=== PATIENT | male | born 1940 | race Caucasian/White ===

== ENCOUNTER → 2023-06-19 12:33 | Outpatient (REF) | payer OTHER, SELFPAY | LOC: RCS 12:33 | PROVIDERS: ATTENDING PHYSICIAN Internal Medicine Cardiovascular Disease; FAMILY PHYSICIAN Family Medicine | DX: Z95.3 Presence of xenogenic heart valve (principal) | CPT/HCPCS: 93306 ==

== ENCOUNTER 2023-06-30 14:50 | Emergency (ER) | payer OTHER, SELFPAY ==
[2023-06-30 15:01] VITALS: BP 173/93
[2023-06-30 16:01] VITALS: BP 186/85
[2023-06-30] MEDS: NSS 1000 IV (16:21)
[2023-06-30] MEDS: COMPAZINE 10 MG IV (16:22)
[2023-06-30 16:28] LABS: % Basophils 0.2 % (0-2); % Immature Granulocytes 0.5 % (0-0.5); % Lymphocytes 6.3 % (20.5-51.1); % Monocytes 4.7 % (1.7-9.3); % Neutrophils 88.3 % (42.2-75.2); Absolute Lymphocytes 0.4 10^3/uL (1.2-3.4); Absolute Monocytes 0.3 10^3/uL (0.1-0.6); Hematocrit 42.6 % (39.0-52.0); Hemoglobin 15.1 g/dL (13.0-18.0); Mean Corp Hgb Conc. 35.4 g/dL (33.0-37.0); Mean Corpuscular Hgb 31.3 pg (27.0-31.0); Mean Corpuscular Volume 88.2 fL (80.0-94.0); Mean Platelet Volume 9.5 fL (7.4-10.4); Nucleated Red Blood Cells % 0 % (-); Platelet Count 142 10^3/uL (130-400); Red Blood Cell Count 4.83 10^6/uL (4.70-6.10); Red Cell Dist. Width 12.2 % (11.5-14.5); White Blood Cell Count 5.7 10^3/uL (4.8-10.8)
[2023-06-30 16:42] LABS: ALT (SGPT) 40 U/L (0-50); AST (SGOT) 46 U/L (17-59); Albumin 4.7 g/dl (3.5-5.0); Alkaline Phosphatase 65 U/L (38-126); Blood Urea Nitrogen 19 mg/dl (9-20); Calcium 9.7 mg/dl (8.4-10.2); Carbon Dioxide 30 mmol/L (22-30); Chloride 99 mmol/L (98-107); Glucose 155 mg/dl (70-99); Potassium 4.6 mmol/L (3.5-5.1); Sodium 135 mmol/L (135-145); Total Bilirubin 1.2 mg/dl (0.2-1.3); Total Protein 7.7 g/dl (6.3-8.2); eGFR > 60.00
[2023-06-30 16:49] LABS: Troponin I < 0.012 ng/ml
[2023-06-30 17:00] VITALS: BP 153/78
[2023-06-30 17:21] LABS: Urine Albumin Trace (Neg - Trace); Urine Bilirubin Negative (Negative); Urine Character Clear (Clear); Urine Color Yellow; Urine Glucose Negative (Negative); Urine Ketone 2+ (Negative); Urine Leukocyte Negative (Negative); Urine Nitrite Negative (Negative); Urine Occult Blood 2+ (Negative); Urine Urobilinogen Negative (Neg - 1+)
[2023-06-30 17:33] LABS: Urine Bacteria Few (Negative); Urine White Cell 0-2 /HPF (0-5)
[2023-06-30 18:00] VITALS: BP 157/87
[2023-06-30] MEDS: LOPRESSOR 12.5 MG PO (18:48)
[2023-06-30 19:00] VITALS: BP 157/78
--- NOTE | 2023-06-30 19:34 | ED.GENMED ---
History of Present Illness
General
Chief Complaint: Dizziness
Source: patient and spouse
Exam Limitations: none
Time Seen by Provider: 06/30/23 15:59
Nursing documentation reviewed up to this point in time: agreed with
Travel History
Have you had any contact with someone who has COVID-19?: No
Do you have any symptoms of coronavirus? Fever > 100 degrees, chills, cough, shortness of breath, sore throat, loss of taste or smell, muscle aches, or headache?: No
History of Present Illness
History of Present Illness:
Patient to ED wt report of dizziness, nausea, dry heaves since yesterday. No fever/chills. reports he is not eating or drinking. Brought to ED for eval.
Past History
Past History
ED Past Medical History: HTN, Hypercholesterolemia, Valvular disease (Aortic stenosis) and Other (TIA, diverticulitis, pulmonary fibrosis, )
ED Past Surgical History: Appendectomy, Cardiac (bioprosthetic aortic and mitral valve replacement 2016, CABG, ), Tonsilectomy and Other (left carotid endarterectomy, herniorrhaphy, Left hernia repair)
Social History
Tobacco: Non-smoker
Alcohol: None
Personal:
Living: with family
Employment: Retired
Family History
Family History: Other
Review of Systems
Review of Systems
Allergies reviewed?: Yes
All Other Systems: ROS reviewed and negative except as documented in HPI and ROS
Constitutional: Reports fatigue
EENT: Reports no symptoms
Respiratory: Reports no symptoms
Cardiac: Reports no symptoms
ABD/GI: Reports nausea and other (poor appetite)
: Reports no symptoms
Musculoskeletal: Reports no symptoms
Skin: Reports no symptoms
Neurological: Reports weakness
Psychiatric: Reports no symptoms
Phy Exam
General Physical Exam
General Presentation: well appearing and no apparent distress
General age: appears stated age
General Skin: warm and dry
General Habitus: normal
General Mental: alert
Cardiovascular Exam
Cardiovascular Exam: regular rate/rhythm and no edema
Pulmonary Exam
Pulmonary Exam: lungs clear and no respiratory distress
Gastrointestinal Exam
Gastrointestinal Exam: normal bowel sounds, non tender, soft, no organomegaly, non distended and no cva tenderness
Neurological Exam
Neurological Exam: alert, oriented x3, CN II-XII intact, no motor deficits, no sensory deficits and speech normal
Musculoskeletal Exam
Musculoskeletal Exam: full ROM and neuro vasc intact
Skin Exam
Skin Exam: normal color, warm/dry and no rash
Psychiatric Exam
Psychiatric Exam: normal mood/affect
Course
Orders/Labs/Results
Orders:
Orders
06/30/23 15:05
EKG [Electrocardiogram (*1)] Urgent
Reason for Study: Vertigo / Dizzy
EKG- Treatment ONCE
06/30/23 16:08
Prochlorperazine [Compazine] 10 mg IV NOW STA
06/30/23 16:09
0.9% Sodium Chloride 1000 ml [Nss] 1,000 ml IV BOLUS
06/30/23 16:16
Complete Blood Count/With Diff Urgent
Comprehensive Metabolic Panel Urgent
Troponin I Urgent
06/30/23 17:08
CT Head W/o Iv Contrast Urgent
Comment:
Reason For Exam: dizzy
06/30/23 17:14
Urinalysis Reflex To Culture Urgent
Date Specimen was Collected: 06/30/23
Time Specimen was Collected: 17:11
Urine Microscopic Reflex Cult Urgent
06/30/23 18:45
Metoprolol [Lopressor] 12.5 mg PO NOW STA
Abnormal Lab Results
06/30/23 06/30/23
16:16 17:14
MCH 31.3 H pg
(27.0-31.0)
Absolute Lymphs (auto) 0.4 L 10^3/uL
(1.2-3.4)
Neutrophils % 88.3 H %
(42.2-75.2)
Lymphocytes % 6.3 L %
(20.5-51.1)
Glucose 155 H mg/dl
(70-99)
Urine Ketones 2+ A
(Negative)
Ur Occult Blood Reflex 2+ A
(Negative)
Urine RBC 11-15 A /HPF
(0-2)
Urine Bacteria (Reflex) Few A
(Negative)
06/30/23 16:16
06/30/23 16:16
Vital Signs
Initial and Last Documented VS:
Initial Vital Signs
Temp Pulse Resp BP Pulse Ox
97.7 F 78 16 173/93 98
06/30/23 15:01 06/30/23 15:01 06/30/23 15:01 06/30/23 15:01 06/30/23 15:01
Last Documented Vital Signs
Temp Pulse Resp BP Pulse Ox
97.7 F 77 16 157/78 97
06/30/23 15:01 06/30/23 19:00 06/30/23 19:00 06/30/23 19:00 06/30/23 18:45
*Radiology
Radiology exam reviewed: radiology read reviewed
*Pulse Oximetry
Patient hypoxic: no
*EKG
Interpretation: normal
Rate: normal
Rhythm: sinus
*Critical Care Note
Total Time (30-74mins, 75-104mins- exclusive of procedures): Not Applicable
Update Note
Update Note:
Improved with IVF. Ambulating to bathroom with spouse without difficulty. Labs, EKG, CT reviewed. No concerning findings. WIll discharge home, close follow upw tih PCP. Given instrutions on s/s to return to ED and they are agreeable to plan
ED Attending Note
-
Portions of this chart may have been created with voice recognition software.� Occasional wrong word or��sound alike� substitutions may have occurred due to the inherent limitations of voice recognition software.
Discharge Plan
Departure
Patient Disposition: Home (Routine Discharge)
Date of Disposition: 06/30/23
Time of Disposition: 19:02
Patient with high blood pressure during this ER visit?: No
Condition: Good
Covid-19: Not Applicable
Discharge Problem:
Weakness
Instructions: Weakness ED, Dizziness
Prescriptions:
No Action
atorvastatin 40 MG tablet
40 mg PO QPM
multivitamin with folic acid [Tab-A-Lisa] 1 TABLET tablet
1 tab PO DAILY Qty: 0 0RF
metoprolol tartrate 25 MG tablet
12.5 mg PO BID Qty: 60 3RF
mesalamine [Canasa] 500 MG suppository
500 mg MI HS
aspirin 81 MG tablet,delayed release (DR/EC)
81 mg PO DAILY
mesalamine [Lialda] 1.2 GM tablet,delayed release (DR/EC)
1.2 g PO DAILY
tamsulosin 0.4 MG capsule
0.4 mg PO DAILY Qty: 15 0RF
Referrals:
Roxana Weber DO [Family Provider] - Follow up in 2-3 days
Activity Restrictions/Additional Instructions:
Return to the emergency department for any changes in/worsening of your symptoms.
Interventions
Interventions:
*Risk Screen - Suicide Last Done: 06/30/23 15:01
*General Assessment Last Done: 06/30/23 15:01
*Neglect/Abuse Screening Last Done: 06/30/23 15:01
ED- Fall Risk Assessment Last Done: 06/30/23 19:05
*ED COVID-19 Vaccine History Last Done: 06/30/23 15:55
*Nursing Disposition Last Done: 06/30/23 19:05
ED- Neurological Assessment Last Done: 06/30/23 16:05
ED- Cardiac Assessment Last Done: 06/30/23 19:05
ED Swallowing Screen Last Done: 06/30/23 16:23
Discharge Date and Time
Print Language: [place]
== END 2023-06-30 19:56 | disposition home or self-care (01) ==
LOC: EMR 14:50
PROVIDERS: Nurse Practitioner; EMERGENCY PHYSICIAN Emergency Medicine; FAMILY PHYSICIAN Family Medicine
DX: R53.1 Weakness (principal); I10 Essential (primary) hypertension
CPT/HCPCS: 99285; 96374; 96361; 70450; 80053; 81003; 81015; 84484; 85025; 93005

== ENCOUNTER 2023-09-17 23:23 | Inpatient (IN) | payer OTHER, SELFPAY ==
[2023-09-17 18:16] VITALS: BP 129/77
[2023-09-17 18:35] LABS: Hematocrit 40.8 % (39.0-52.0); Hemoglobin 14.3 g/dL (13.0-18.0); Mean Corpuscular Hgb 31.5 pg (27.0-31.0); Mean Corpuscular Volume 89.9 fL (80.0-94.0); Mean Platelet Volume 9.5 fL (7.4-10.4); Platelet Count 162 10^3/uL (130-400); Red Blood Cell Count 4.54 10^6/uL (4.70-6.10); Red Cell Dist. Width 12.2 % (11.5-14.5); White Blood Cell Count 11.9 10^3/uL (4.8-10.8)
[2023-09-17 18:56] LABS: % Basophils 0.2 % (0-2); % Immature Granulocytes 0.4 % (0-0.5); % Lymphocytes 11.2 % (20.5-51.1); % Monocytes 20.1 % (1.7-9.3); % Neutrophils 68.1 % (42.2-75.2); Absolute Immature Granulocytes 0.1 10^3/uL (0-0.05); Absolute Lymphocytes 1.3 10^3/uL (1.2-3.4); Absolute Monocytes 2.4 10^3/uL (0.1-0.6); Absolute Neutrophils 8.1 10^3/uL (1.4-6.5); Nucleated Red Blood Cells % 0 % (-)
[2023-09-17 19:07] LABS: ALT (SGPT) 48 U/L (0-50); AST (SGOT) 47 U/L (17-59); Albumin 4.6 g/dl (3.5-5.0); Alkaline Phosphatase 75 U/L (38-126); Blood Urea Nitrogen 19 mg/dl (9-20); Calcium 9.7 mg/dl (8.4-10.2); Carbon Dioxide 27 mmol/L (22-30); Chloride 98 mmol/L (98-107); Glucose 129 mg/dl (70-99); Potassium 4.1 mmol/L (3.5-5.1); Sodium 134 mmol/L (135-145); Total Bilirubin 1.6 mg/dl (0.2-1.3); Total Protein 7.5 g/dl (6.3-8.2); eGFR > 60.00
[2023-09-17 19:24] VITALS: BP 174/81
[2023-09-17 20:00] VITALS: BP 126/69
[2023-09-17 20:10] LABS: Urine Albumin Trace (Neg - Trace); Urine Bilirubin Negative (Negative); Urine Character Clear (Clear); Urine Color Yellow; Urine Glucose Negative (Negative); Urine Ketone Negative (Negative); Urine Leukocyte Negative (Negative); Urine Nitrite Negative (Negative); Urine Occult Blood 3+ (Negative); Urine Urobilinogen Negative (Neg - 1+)
[2023-09-17 20:23] LABS: Urine Bacteria Few (Negative); Urine White Cell 0-2 /HPF (0-5)
--- NOTE | 2023-09-17 20:52 | ED.GENMED ---
History of Present Illness
<Kelly Tee NP - Last Filed: 09/17/23 21:58>
General
Chief Complaint: Abdominal Pain
Source: spouse
Exam Limitations: none
Time Seen by Provider: 09/17/23 19:17
Nursing documentation reviewed up to this point in time: agreed with
History of Present Illness
History of Present Illness:
Patient to ED with weakness. states he woke over night with confusion. This AM he appeared weak. Weakness has worsened throughout the day. Denies fever/chills. Appetite is poor. Not eating or drinking. Brought to ED by for eval.
Past History
<Kelly Tee NP - Last Filed: 09/17/23 21:58>
Past History
ED Past Medical History: HTN, Hypercholesterolemia, Valvular disease (Aortic stenosis) and Other (TIA, diverticulitis, pulmonary fibrosis, )
ED Past Surgical History: Appendectomy, Cardiac (bioprosthetic aortic and mitral valve replacement 2016, CABG, ), Tonsilectomy and Other (left carotid endarterectomy, herniorrhaphy, Left hernia repair)
Social History
Tobacco: Non-smoker
Alcohol: None
Personal:
Living: with family
Employment: Retired
Family History
Family History: Other
Review of Systems
<Kelly Tee ASTROCHEMIST - Last Filed: 09/17/23 21:58>
Review of Systems
All Other Systems: ROS reviewed and negative except as documented in HPI and ROS
Constitutional: Reports no symptoms
EENT: Reports no symptoms
Respiratory: Reports no symptoms
Cardiac: Reports no symptoms
ABD/GI: Reports anorexia
: Reports no symptoms
Musculoskeletal: Reports joint pain (Pain to right shoulder x 1-2 weeks)
Skin: Reports no symptoms
Neurological: Reports weakness
Psychiatric: Reports no symptoms
Phy Exam
<Kelly Tee NP - Last Filed: 09/17/23 21:58>
General Physical Exam
General Presentation: no apparent distress
General age: appears stated age
General Skin: warm
General Habitus: elderly and frail
General Mental: alert
Cardiovascular Exam
Cardiovascular Exam: regular rate/rhythm and no edema
Pulmonary Exam
Pulmonary Exam: lungs clear and no respiratory distress
Gastrointestinal Exam
Gastrointestinal Exam: normal bowel sounds, non tender and soft
Neurological Exam
Neurological Exam: alert, CN II-XII intact, no motor deficits, no sensory deficits and speech normal
NIH Stroke Score
Level of Consciousness: 0 - Alert
LOC questions: 0-Answers both correctly
LOC Commands: 0-Performs both correctly
Best Gaze: 0-Normal
Visual Hammer: 0=Normal, no visual loss
Facial palsy: 0=Normal, symmetrical
Motor - Right Arm: 0=No drift 10 seconds (Limited ROM due to right shoulder pain)
Motor - Left Arm: 0=No drift 10 seconds
Motor - Right Le-No drift 5 seconds
Motor - Left Le-No drift 5 seconds
Limb Ataxia: 0-Absent
Sensation: 0-Normal
Best Language: 0-No aphasia
Dysarthria: 0-Normal
Extinction and Inattention: 0-No abnormality
Total Score:: 0
Musculoskeletal Exam
Musculoskeletal Exam: neuro vasc intact and other (Right shoulder pain. Limited ROM due to pain. No history of trauma. )
Skin Exam
Skin Exam: normal color, warm/dry and no rash
Psychiatric Exam
Psychiatric Exam: normal mood/affect
<JODI Mondragon - Last Filed: 09/18/23 00:14>
NIH Stroke Score
Total Score:: 0
Course
<Kelly Tee NP - Last Filed: 09/17/23 21:58>
Orders/Labs/Results
Orders:
Orders
09/17/23 18:23
CMP [Comprehensive Metabolic Panel] Urgent
Complete Blood Count/With Diff Urgent
09/17/23 19:28
CT Head W/o Iv Contrast Urgent
Comment:
Reason For Exam: weakness
Shoulder, Right 2 Views [CR Shoulder - Right Min 2 View] Urgent
Comment:
Reason For Exam: pain
09/17/23 19:56
Urinalysis Reflex To Culture Urgent
Date Specimen was Collected: 09/17/23
Time Specimen was Collected: 19:54
Urine Microscopic Reflex Cult Urgent
09/17/23 20:54
0.9% Sodium Chloride 1000 ml [Nss] 1,000 ml IV BOLUS
09/17/23 22:47
CR Chest - 2 Views Urgent
Comment:
Reason For Exam: sob
09/17/23 22:50
Admit/Transfer Patient As Directed
Co-Sign Provider:
Level of Care: Inpatient admission
Assign to:: Medical/Surgical
Physician / Group: lexie
Diagnosis: metabolic encephalopathy
Reason for Hospitalization: metabolic encephalopathy
Expected length of stay greater than two midnights?: Yes
ELOS- Estimated Length of Stay in days: 3
I certify the patient meets the requirements for IP care: Yes
PRN Pain Medication Management As Directed
May give lesser potent ordered pain med per pt: Yes
preference::
Protocol:: Medication orders for pain may be administered in a
manner that supports deferring to patient preference
when the pt is:
- Requesting an ordered lesser potent pain medication.
Least to most potent pain medications are defined
as: acetaminophen < NSAID < tramadol < opioids
(morphine, oxycodone, hydromorphone).
- Requesting a lesser dose of the same medication IF
ORDERED.
- Requesting a less intrusive route of administration
if both routes are prescribed by the provider (PO <
IV).
09/17/23 22:51
Code Status As Directed
Resuscitation Status: Full Code
Abnormal Lab Results
09/17/23 09/17/23
18:23 19:56
WBC 11.9 H 10^3/uL
(4.8-10.8)
RBC 4.54 L 10^6/uL
(4.70-6.10)
MCH 31.5 H pg
(27.0-31.0)
Abs Immat Gran (auto) 0.1 H 10^3/uL
(0-0.05)
Absolute Neuts (auto) 8.1 H 10^3/uL
(1.4-6.5)
Absolute Monos (auto) 2.4 H 10^3/uL
(0.1-0.6)
Lymphocytes % 11.2 L %
(20.5-51.1)
Monocytes % 20.1 H %
(1.7-9.3)
Sodium 134 L mmol/L
(135-145)
Glucose 129 H mg/dl
(70-99)
Total Bilirubin 1.6 H mg/dl
(0.2-1.3)
Ur Occult Blood Reflex 3+ A
(Negative)
Urine RBC 3-6 A /HPF
(0-2)
Urine Bacteria (Reflex) Few A
(Negative)
09/17/23 18:23
09/17/23 18:23
Vital Signs
Initial and Last Documented VS:
Initial Vital Signs
Temp Pulse Resp BP Pulse Ox
99.2 F 90 18 129/77 96
09/17/23 18:16 09/17/23 18:16 09/17/23 18:16 09/17/23 18:16 09/17/23 18:16
Last Documented Vital Signs
Temp Pulse Resp BP Pulse Ox
99.4 F 77 17 160/63 97
09/17/23 20:05 09/18/23 00:00 09/18/23 00:00 09/18/23 00:00 09/17/23 22:00
<Lyssa Farooq, JODI - Last Filed: 09/18/23 00:14>
Orders/Labs/Results
Orders:
Orders
09/17/23 18:23
CMP [Comprehensive Metabolic Panel] Urgent
Complete Blood Count/With Diff Urgent
09/17/23 19:28
CT Head W/o Iv Contrast Urgent
Comment:
Reason For Exam: weakness
Shoulder, Right 2 Views [CR Shoulder - Right Min 2 View] Urgent
Comment:
Reason For Exam: pain
09/17/23 19:56
Urinalysis Reflex To Culture Urgent
Date Specimen was Collected: 09/17/23
Time Specimen was Collected: 19:54
Urine Microscopic Reflex Cult Urgent
09/17/23 20:54
0.9% Sodium Chloride 1000 ml [Nss] 1,000 ml IV BOLUS
09/17/23 22:47
CR Chest - 2 Views Urgent
Comment:
Reason For Exam: sob
09/17/23 22:50
Admit/Transfer Patient As Directed
Co-Sign Provider:
Level of Care: Inpatient admission
Assign to:: Medical/Surgical
Physician / Group: lexie
Diagnosis: metabolic encephalopathy
Reason for Hospitalization: metabolic encephalopathy
Expected length of stay greater than two midnights?: Yes
ELOS- Estimated Length of Stay in days: 3
I certify the patient meets the requirements for IP care: Yes
PRN Pain Medication Management As Directed
May give lesser potent ordered pain med per pt: Yes
preference::
Protocol:: Medication orders for pain may be administered in a
manner that supports deferring to patient preference
when the pt is:
- Requesting an ordered lesser potent pain medication.
Least to most potent pain medications are defined
as: acetaminophen < NSAID < tramadol < opioids
(morphine, oxycodone, hydromorphone).
- Requesting a lesser dose of the same medication IF
ORDERED.
- Requesting a less intrusive route of administration
if both routes are prescribed by the provider (PO <
IV).
09/17/23 22:51
Code Status As Directed
Resuscitation Status: Full Code
Abnormal Lab Results
09/17/23 09/17/23
18:23 19:56
WBC 11.9 H 10^3/uL
(4.8-10.8)
RBC 4.54 L 10^6/uL
(4.70-6.10)
MCH 31.5 H pg
(27.0-31.0)
Abs Immat Gran (auto) 0.1 H 10^3/uL
(0-0.05)
Absolute Neuts (auto) 8.1 H 10^3/uL
(1.4-6.5)
Absolute Monos (auto) 2.4 H 10^3/uL
(0.1-0.6)
Lymphocytes % 11.2 L %
(20.5-51.1)
Monocytes % 20.1 H %
(1.7-9.3)
Sodium 134 L mmol/L
(135-145)
Glucose 129 H mg/dl
(70-99)
Total Bilirubin 1.6 H mg/dl
(0.2-1.3)
Ur Occult Blood Reflex 3+ A
(Negative)
Urine RBC 3-6 A /HPF
(0-2)
Urine Bacteria (Reflex) Few A
(Negative)
09/17/23 18:23
09/17/23 18:23
Vital Signs
Initial and Last Documented VS:
Initial Vital Signs
Temp Pulse Resp BP Pulse Ox
99.2 F 90 18 129/77 96
09/17/23 18:16 09/17/23 18:16 09/17/23 18:16 09/17/23 18:16 09/17/23 18:16
Last Documented Vital Signs
Temp Pulse Resp BP Pulse Ox
99.4 F 77 17 160/63 97
09/17/23 20:05 09/18/23 00:00 09/18/23 00:00 09/18/23 00:00 09/17/23 22:00
<JODI Mondragon - Last Filed: 09/18/23 00:14>
*Radiology
Radiology exam reviewed: radiology read reviewed (CT head night hawk-NO acute intracranial findings. Senescent changes. Vascular calcifications. )
*Critical Care Note
Total Time (30-74mins, 75-104mins- exclusive of procedures): Not Applicable
<Kelly Tee NP - Last Filed: 09/17/23 21:58>
Update Note
Update Note:
Patient to ED for eval of weakness. According to he woke overnight with confusion. States he was awake from 3-6AM with confusion. states confusion passed by he became weak and fatigued. Is able to ambulate but requires assistance of
family. Normally he is independent. Labs reviewed. CT of head is pending. Will admit for weakness.
ED Attending Note
<Kelly Tee NP - Last Filed: 09/17/23 21:58>
-
Portions of this chart may have been created with voice recognition software.� Occasional wrong word or��sound alike� substitutions may have occurred due to the inherent limitations of voice recognition software.
Discharge Plan
Departure
Patient Disposition: Admit
Date of Disposition: 09/17/23
Time of Disposition: 21:55
Presentation/result/management discussed w/ accepting MD/DO: Hospitalist
Patient with high blood pressure during this ER visit?: No
Condition: Fair
Covid-19: Not Applicable
Discharge Problem:
Weakness
Interventions
Interventions:
*Risk Screen - Suicide Last Done: 09/17/23 19:55
*General Assessment Last Done: 09/17/23 18:16
*Neglect/Abuse Screening Last Done: 09/17/23 19:55
ED- Fall Risk Assessment Last Done: 09/17/23 19:29
*ED COVID-19 Vaccine History Last Done: 09/17/23 18:16
NV-Yrwtjg-Cwnaaaujpf Assessment Last Done: 09/17/23 19:29
[2023-09-17 21:00] VITALS: BP 144/73
[2023-09-17] MEDS: NSS 1000 IV (21:02)
--- NOTE | 2023-09-17 22:23 | PHANOTE ---
med rec derek(09/17/23)-patient did not know his medications, family left before I could interview them. List compiled by nurse's interview with family, as well as pharmacy and [facility] records.
--- NOTE | 2023-09-17 22:28 | HPS.HSE ---
Addendum entered and electronically signed by Joe Knox DO 09/18/23 00:41:
Patient seen and examined independently. Agree with findings and plan as set forth by JODI Guzman.
Patient is an 83y M with PMH significant for hypertension, A-Flutter and carotid stenosis who presents to ED for evaluation of confusion and weakness. History obtained from ED staff ad family could not be reached for comment after multiple
attempts. informed ED that patient seemed confused and weak last PM. Woke today with similar / persistent symptoms. Slept for much of the day today. Disoriented. Seemed unsteady on his feet without specific / focal weakness. informed
ED staff that patient is independent with ADLs at baseline and has no confusion / dementia / etc.
No recent reported or noted symptoms of cough, N/V/D, etc.
Ass:
Acute TME
Generalized Weakness / Gait Dysfunction secondary to the above
Leukocytosis
Benign Hypertension
Aortic Stenosis
Paroxysmal A-Flutter
Ulcerative Colitis
Left Carotid Stenosis
Plan:
Observe overnight for further evaluation.
No clear etiology appreciated thus far for confusion / weakness.
CT head unremarkable. CXR unremarkable. UA unremarkable.
Check COVID status.
Monitor for any new / focal weakness or symptoms.
Monitor for any symptoms suggestive of infectious process.
PT / OT evaluations in the AM.
Neurology evaluation.
Check MRI in AM for further evaluation.
Continue usual outpatient medications.
Improved history from would likely be helpful - suspect some degree of baseline dementia is present.
Original Note:
Family Physician
-
Family Physician: Roxana Weber
Chief Complaint
-
generalized weakness
confusion
History of Present Illness
83 year old with PMH for HTN, HLD, Aortic stenosis, TIA, diverticulitis presented to us with change in MS since last night. as per ER note patient woke up confused and noted very weak, sleeping more than usual today. upon my assessment, he was
very confused. he was standing next to sink with IV pulled out. he was incontinence of urine. patient denied any acute pain, chest pain, sob. patient is poor historian, not able to provide history . attempted to reach from patient room. as per
[employer], he is not usually confused and pretty good with ambulation and activities of daily living.
noted elevated wbc. UA negative. received normal saline. CT head and shoulder x ray pending.
admitting for further management for generalized weakness.
Medical History
Past Medical History
Past Medical History: Reports Other
Additional Past Medical History:
ulcerative colitis
paroxysmal atrial flutter
HTn
HLD
pulmonary fibrosis
left carotid stenosis
Past Surgical History: Reports Other
Additional Past Surgical History:
aortic valve replacement
Social History
Tobacco: Non-smoker
Alcohol: None
Drug: None
Personal:
Living: With Family
Family History
Family History: Not pertinent
Allergies / Home Medications
Allergies reflects when Allergies were last updated in [employer].
Home Medications with original date entered in [employer]
Allergy/Medication List:
Allergies
Allergy/AdvReac Type Severity Reaction Status Date / Time
No Known Allergies Allergy Verified 09/17/23 18:19
Home Medications
atorvastatin 40 mg tablet 40 mg PO QPM 07/01/15
metoprolol tartrate 25 mg tablet 12.5 mg (1/2 x 25 mg) PO BID #60 tabs 07/11/15
multivitamin with folic acid 400 mcg tablet (Tab-A-Lisa) 1 tab PO DAILY ##0 07/11/15
mesalamine 1.2 gram tablet,delayed release (Lialda) 2.4 g PO DAILY 04/12/17
amlodipine 5 mg tablet 5 mg PO DAILY 09/17/23
ezetimibe 10 mg tablet 10 mg PO DAILY 09/17/23
Review of Systems
-
Constitutional: Reports No Symptoms
EENT: Reports No Symptoms
Respiratory: Reports No Symptoms
Cardiac: Reports No Symptoms
Abdomen/GI: Reports No Symptoms
: Reports No Symptoms
Musculoskeletal: Reports No Symptoms
Skin: Reports No Symptoms
Neurological: Reports No Symptoms
Endocrine: Reports No Symptoms
Hematologic/Lymphatic: Reports No Symptoms
Psych: Reports No Symptoms
Physical Exam
Vital Signs
Vital Signs
Temp Pulse Resp BP Pulse Ox
99.4 F 88 18 144/73 97
09/17/23 20:05 09/17/23 22:15 09/17/23 22:15 09/17/23 21:00 09/17/23 22:00
Physical Exam
General: Well Developed, Well Nourished and No Apparent Distress
HEENT: NormoCephalic, Moist mucous membranes and Atraumatic
Respiratory: Clear
Cardiac: S1/S2 and Regular Rhythm; No Murmur or Rub
GI: Soft, Non Tender, Non Distended and Normal Bowel Sounds; No Organomegaly
Rectal: Deferred by Provider
Musculoskeletal: No Clubbing, No Cyanosis and No Edema
Skin: No Rash
Neuro: AO x 3 and Nonfocal/grossly intact
Psych: Calm
Laboratory Results
-
09/17/23 18:23
09/17/23 18:23
Laboratory Results
Total Bilirubin 1.6 mg/dl (0.2-1.3) H 09/17/23 18:23
AST 47 U/L (17-59) 09/17/23 18:23
ALT 48 U/L (0-50) 09/17/23 18:23
Alkaline Phosphatase 75 U/L (38-126) 09/17/23 18:23
Data Reviewed
-
Diagnostic Radiology: Report Reviewed by me
CT Scan: Report Reviewed by me
Lab Data: Labs Reviewed by me
Impression/Plan
-
#generalized weakness/metabolic encephalopathy unclear cause
-PT/OT consult
-head CT pending
#leukocytosis unclear likely stress reactive
-wbc 11.9
-patient is afebrile
-UA negative
-will obtain chest x ray
#essential HTN
-BP stble
-Norvasc,metoprolol continued with hold parameter
#HLD
-statin continued
-Zetia continued
#hxt of ulcerative colitis
-mesalamine continued
#DVT Prophylaxis
-Lovenox
#CODE status
-full code
[2023-09-18] VITALS (8 sets, daily range): BP systolic 115–168; BP diastolic 57–96; O2SAT 98; BMI 22.5
[2023-09-18 01:20] LABS: COVID-19 Antigen Negative (Negative)
--- NOTE | 2023-09-18 01:53 | PTCARENOTE ---
Rec'd pt from ER. Pulled over in to the bed. Pt is confused and unable to answer admission questions. No family present at this time. He does wince when repositioned. He can not tell RN where his pain is. He denies pain when asked. Bed alarm placed
under patient. call fay in reach.
[2023-09-18 07:44] LABS: Hematocrit 38.3 % (39.0-52.0); Hemoglobin 13.6 g/dL (13.0-18.0); Mean Corp Hgb Conc. 35.5 g/dL (33.0-37.0); Mean Corpuscular Volume 87.2 fL (80.0-94.0); Platelet Count 157 10^3/uL (130-400); Red Blood Cell Count 4.39 10^6/uL (4.70-6.10); Red Cell Dist. Width 12.3 % (11.5-14.5); White Blood Cell Count 7.7 10^3/uL (4.8-10.8)
[2023-09-18 08:20] LABS: Blood Urea Nitrogen 16 mg/dl (9-20); Calcium 9.4 mg/dl (8.4-10.2); Carbon Dioxide 29 mmol/L (22-30); Chloride 103 mmol/L (98-107); Estimated Creatinine Clearance 54 ml/min; Glucose 100 mg/dl (70-99); Potassium 3.9 mmol/L (3.5-5.1); Sodium 138 mmol/L (135-145); eGFR > 60.00
[2023-09-18] MEDS: LOPRESSOR 12.5 MG PO ×2 (08:22→19:10)
[2023-09-18] MEDS: ASACOL, DELZICOL DR 2400 MG PO (08:22)
[2023-09-18] MEDS: ZETIA 10 MG PO (08:22)
[2023-09-18] MEDS: NORVASC 5 MG PO ×2 (08:22→19:08)
--- NOTE | 2023-09-18 11:00 | W.PN.HOSP.TC ---
Addendum entered and electronically signed by Malika Dent MD 09/18/23 16:08:
Spoke to patient's . Updated regarding testing results and also MRI. Discussed that this could be worsening of his dementia no evidence of infection. She realizes that his dementia is slowly getting worse. She would rather take him home
tomorrow she feels that he is much better today talking and walking much better.
Original Note:
Today's Communication/Plan
-
Await neurology evaluation
Looks like worsening of dementia
PT OT evaluation
No source of infection or stroke evident at this point on the workup.
Assessment / Plan
Assessment / Plan
82-year-old man presented to the hospital with abdominal pain and poor appetite. also noted that patient was weak and confused and sleeping more than usual. Patient is not confused at baseline with pretty good with ADLs and ambulation .
MRI of the brain-no acute infarct. Moderate to severe bilateral temporal lobe volume loss and moderate volume loss in the frontal and parietal lobes consistent with severe neurodegenerative disease. Mild white matter leukoaraiosis in the frontal
and parietal lobes. Small number of chronic intraparenchymal microhemorrhages in the frontal lobes, insular cortex, right cerebellar hemisphere-likely amyloid angiopathy. Severe multilevel discogenic degenerative changes in the cervical spine with
disc osteophyte complexes.
Patient appears to be confused. He knows his name. He does not know where he is. He thinks he is in a 'situation' and wants to get back to [place].
Neuro exam-no facial droop, no sensory or motor loss noted. Reflexes equal throughout
Cardiovascular system S1-S2 appreciated
Chest clear to auscultation
Abdomen soft and nontender
No pedal edema
# Generalized weakness/encephalopathy of unclear cause
Rule out infectious versus noninfectious reasons
MRI of the brain with evidence of volume loss consistent with dementia
Outpatient review of notes indicates that patient has had memory issues since December 2022 and was evaluated by PCP.
This looks like worsening of his dementia
# Left carotid stenosis with history of left carotid endarterectomy 2013
# Essential hypertension-on Norvasc/metoprolol-continue. Increase dose of Norvasc to 5 twice daily
# History of bioprosthetic aortic valve and mitral valve
Echo 06/19/2023-small LV size. EF 66%. Diastolic function indeterminate. Normal RV size and function. Tissue valve-mitral and aortic. Trace TR. Pulmonary pressure 31 mmHg
# Paroxysmal atrial flutter-not on anticoagulation as outpatient
# History of TIA/CVA-continue statin. Not on antiplatelets or anticoagulation as outpatient.
# Hyperlipidemia-continue statin/Zetia
# History of ulcerative colitis-continue mesalamine
# DVT prophylaxis-Lovenox
# Full code
Discussed with neurology
Discussed with nursing
Called and left a message
Anticipated Discharge: Within 24 hours
Subjective/Interval History
-
Date of Service: September 18, 2023
Objective Data
-
Labs:
Laboratory Results
09/18/23
07:23
WBC 7.7
Hgb 13.6
Hct 38.3 L
Plt Count 157
Sodium 138
Potassium 3.9
Chloride 103
Carbon Dioxide 29
BUN 16
Creatinine 0.9
Glucose 100 H
Calcium 9.4
Vital Signs:
Vital Signs
Temp Pulse Resp BP Pulse Ox
98.4 F 82 20 168/96 96
09/18/23 07:37 09/18/23 08:22 09/18/23 07:37 09/18/23 08:22 09/18/23 07:37
I&O
09/17/23 09/18/23 09/19/23
06:59 06:59 06:59
Output Total 650 / 650
Balance -650 / -650
--- NOTE | 2023-09-18 11:13 | CON.NEURO ---
Neuro Assessment/Plan
Assessment
IMPRESSIONS/
Abrupt change in mental status; most likely a subacute worsening of severe dementia
MRI image results of the brain suggest the possibility of both Alzheimer's disease and amyloid angiopathy
Plan
Check blood work for potential metabolic abnormalities which may be producing symptomatology
Patient unlikely to benefit from memory stabilizing medications based on severity of memory loss
Consider case management consultation for placement
No indication for antiplatelet therapy
Supportive care
Will continue to follow patient as needed.
Consultation
Order
Date of Consultation: 09/18/23
Requesting Provider: Hospitalist
Reason for Consult: Decline in mental status
Subjective/Objective
Subjective Data
Date of Service: September 18, 2023
Right-handed
Patient was brought to this hospital's emergency department with a decline in mental status as reported by the patient's spouse.
Patient's information is obtained after review of the patient's medical records as well as discussion with professional medical care providers. The patient reportedly was in his usual state of health until December 2022 at which time the patient
was described as having a decline in cognitive ability following infection with COVID-19. At that time, the patient was described as not being able to identify family. The patient had subsequently improved by March 2023 to the he was reoriented
to self and able to identify his . There are no known modifying factors. The patient himself is unable to provide his own history.
Objective Data
Vital Signs
Temp Pulse Resp BP Pulse Ox
36.9 C 82 20 168/96 98
09/18/23 07:37 09/18/23 08:22 09/18/23 07:37 09/18/23 08:22 09/18/23 11:09
Lab Results
09/18/23 07:23
09/18/23 07:23
Sodium 138 mmol/L (135-145) 09/18/23 07:23
Potassium 3.9 mmol/L (3.5-5.1) 09/18/23 07:23
BUN 16 mg/dl (9-20) 09/18/23 07:23
Glucose 100 mg/dl (70-99) H 09/18/23 07:23
Calcium 9.4 mg/dl (8.4-10.2) 09/18/23 07:23
Patient Allergies
No Known Allergies Allergy (Verified 09/17/23 18:19)
Review of Systems
-
Unable to obtain full review of systems at this time due to: Dementia
History Source: Patient
All other systems: Reviewed and negative
Physical Exam
-
General: No Apparent Distress and Appears Stated Age
Eyes: OU Absent Papilledema, Round OU, [place] Conjunctivae and No Ptosis
HEENT: Anicteric and Moist Mucous Membranes
Neck: Full Range of Motion
Respiratory: No Dyspnea
Cardiac: No JVD
GI: Non-distended
Skin: Unremarkable
Extremities: No Clubbing, No Cyanosis and No Edema
Psych: Negative Intact Judgement/Insight
Extended Neurological Exam
Mood & Affect: Anxious
Attention Span & Concentration: Awake, Alert and Interactive
Memory: Reduced (for location, month, year), Unable to Recall Personal History and Other (tangential)
Tremor: Hand Tremor Absent and Head Tremor Absent
Involuntary Movement: None
Speech: Quality Unremarkable and Quantity Unremarkable
Cranial Nerve II: Left Eye: Pupillary Reactivity Unremarkable, Pupillary Size Unremarkable and Visual Hammer Grossly Intact
Cranial Nerve II: Right Eye: Pupillary Reactivity Unremarkable, Pupillary Size Unremarkable and Visual Hammer Grossly Intact
Cranial Nerves III, IV, : Extraocular Movement: Extraocular Movement Full in all Directions
Cranial Nerve VII: Facial Symmetry: Normal Facial Symmetry
Cranial Nerve VIII: Hearing: Unremarkable Hearing to Normal Conversational Volume
Cranial Nerves IX, X: Palate Movement: Palate Elevation Symmetric
Cranial Nerve XI: Shoulder Shrug: Unremarkable
Cranial Nerve XII: Tongue Protusion: Midline
Muscle Strength, Overall: Full Throughout
Muscle Bulk & Tone: Bulk Unremarkable and Tone Unremarkable
Pronator Drift: No Drift in Upper Extremities
Deep Tendon Reflexes: Trace Throughout
Touch Sensation: Unremarkable
Coordination: Ajwupg-avpw-[id number] Testing Unremarkable
Babinski Sign: Absent Bilaterally
Data Reviewed
-
MRI Head: Report Reviewed
Labs: Report Reviewed
Reviewed with: Physician and Patient
Old Records: Summarized
Medications
-
Active Medications
Generic Name Dose Route Start Last Admin
Trade Name Freq PRN Reason Stop Dose Admin
Acetaminophen 650 mg 09/18/23 01:12
Acetaminophen 325 Mg Tablet PO 10/16/23 01:11
Q4HPRN PRN
mild pain/STEWART/temp> 100.4F
Amlodipine Besylate 5 mg 09/18/23 08:00 09/18/23 08:22
Amlodipine 5 Mg Tablet PO 10/16/23 07:59 5 mg
DAILY ANNE-MARIE Administration
Atorvastatin Calcium 40 mg 09/18/23 18:00
Atorvastatin (Lipitor) 40 Mg Tablet PO 10/16/23 17:59
QPM ANNE-MARIE
Bisacodyl 10 mg 09/18/23 01:12
Bisacodyl 10 Mg Rectal Suppository RECTAL 10/16/23 01:11
[id number] PRN
constipation
Ezetimibe 10 mg 09/18/23 08:00 09/18/23 08:22
Ezetimibe (Zetia) 10 Mg Tablet PO 10/16/23 07:59 10 mg
DAILY ANNE-MARIE Administration
Enoxaparin Sodium 40 mg 09/18/23 18:00
Enoxaparin Sodium 40 Mg/0.4 Ml Syringe SC 10/16/23 17:59
QPM ANNE-MARIE
Mesalamine 2,400 mg 09/18/23 08:00 09/18/23 08:22
Mesalamine 400 Mg Delayed Release Capsule PO 10/16/23 07:59 2,400 mg
DAILY ANNE-MARIE Administration
Metoprolol Tartrate 12.5 mg 09/18/23 08:00 09/18/23 08:22
Metoprolol 12.5 Mg Regular Release Dose (1/2 Of 25 Mg Tablet) PO 10/16/23 07:59 12.5 mg
BID ANNE-MARIE Administration
Polyethylene Glycol 17 grams 09/18/23 01:12
Polyethylene Glycol Powder 17 Grams Packet PO 10/16/23 01:11
DAILYPRN PRN
constipation
Senna/Docusate Sodium 1 tablet 09/18/23 01:12
Docusate W/Senna (Lizbeth-Colace) Tablet PO 10/16/23 01:11
BIDPRN PRN
constipation
Sodium Chloride 0 flush 09/18/23 02:00
Sodium Chloride 0.9% (Flush) Syringe IV 10/16/23 01:59
PER PROTOCOL ANNE-MARIE
Home Medications
�Medication �Instructions �Recorded
atorvastatin 40 mg tablet 40 mg PO QPM High Cholesterol 07/01/15
metoprolol tartrate 25 mg tablet 12.5 mg (1/2 x 25 mg) PO BID #60 07/11/15
tabs
multivitamin with folic acid 400 1 tab PO DAILY ##0 07/11/15
mcg tablet (Tab-A-Lisa)
mesalamine 1.2 gram tablet,delayed 2.4 g PO DAILY Gastrointestinal 04/12/17
release (Lialda) Issue
amlodipine 5 mg tablet 5 mg PO DAILY Blood Pressure 09/17/23
ezetimibe 10 mg tablet 10 mg PO DAILY High Cholesterol 09/17/23
Past History
Past History
ED Past Medical History: HTN, Hypercholesterolemia, Valvular disease (Aortic stenosis) and Other (TIA, diverticulitis, pulmonary fibrosis, dementia, ulcerative colitis)
ED Past Surgical History: Appendectomy, Cardiac (bioprosthetic aortic and mitral valve replacement 2016, CABG), Tonsilectomy and Other (left carotid endarterectomy, herniorrhaphy, Left hernia repair)
Social History
Tobacco: Non-smoker
Alcohol: None
Personal:
Living: with family
Employment: Retired
Family History
Family History: Other (reviewed and non-contributory)
--- NOTE | 2023-09-18 13:04 | CM ---
Patient seen with , Coleen, and daughter, Carlene, initial assessment completed by . Patient resides with his and daughter in a multiple story home, three steps to enter. Patients reports they are looking into transitioning into a
first floor set up. Patients reports she has two sons who are very supportive. Patient has a walker at home, denies VN or SNF history. Patient PCP Roxana Weber, pharmacy [facility] in [place]. Patients confirms prescription coverage.
Patients denies food, housing/utility, transportation insecurities at home. CM will continue to follow for all discharge planning needs, watch PT/OT evaluations.
Plan; will depend on PT/OT evals for further recommendations.
[2023-09-18] MEDS: LIPITOR 40 MG PO (17:12)
[2023-09-18] MEDS: LOVENOX 40 MG SC (17:12)
[2023-09-19 07:30] VITALS: BP 138/76
[2023-09-19] MEDS: ASACOL, DELZICOL DR 2400 MG PO (08:46)
[2023-09-19] MEDS: NORVASC 5 MG PO (08:46)
[2023-09-19] MEDS: ZETIA 10 MG PO (08:46)
[2023-09-19] MEDS: LOPRESSOR 12.5 MG PO (08:47)
--- NOTE | 2023-09-19 13:17 | W.PN.HOSP.TC ---
Today's Communication/Plan
-
Discharge
Assessment / Plan
Assessment / Plan
82-year-old man presented to the hospital with abdominal pain and poor appetite. also noted that patient was weak and confused and sleeping more than usual. Patient is not confused at baseline with pretty good with ADLs and ambulation .
MRI of the brain-no acute infarct. Moderate to severe bilateral temporal lobe volume loss and moderate volume loss in the frontal and parietal lobes consistent with severe neurodegenerative disease. Mild white matter leukoaraiosis in the frontal
and parietal lobes. Small number of chronic intraparenchymal microhemorrhages in the frontal lobes, insular cortex, right cerebellar hemisphere-likely amyloid angiopathy. Severe multilevel discogenic degenerative changes in the cervical spine with
disc osteophyte complexes.
Patient appears to be confused. He knows his name.
wqas able to say 's name and who she is
Neuro exam-no facial droop, no sensory or motor loss noted. Reflexes equal throughout
Cardiovascular system S1-S2 appreciated
Chest clear to auscultation
Abdomen soft and nontender
No pedal edema
# Generalized weakness/encephalopathy of unclear cause
No infectious reasons found. No CVA
MRI of the brain with evidence of volume loss consistent with dementia
Outpatient review of notes indicates that patient has had memory issues since December 2022 and was evaluated by PCP.
This looks like worsening of his dementia
# Left carotid stenosis with history of left carotid endarterectomy 2013
# Essential hypertension-on Norvasc/metoprolol-continue. Increase dose of Norvasc to 5 twice daily, change to 7.5 in am
# History of bioprosthetic aortic valve and mitral valve
Echo 06/19/2023-small LV size. EF 66%. Diastolic function indeterminate. Normal RV size and function. Tissue valve-mitral and aortic. Trace TR. Pulmonary pressure 31 mmHg
# Paroxysmal atrial flutter-not on anticoagulation as outpatient
# History of TIA/CVA-continue statin. Not on antiplatelets or anticoagulation as outpatient.
# Hyperlipidemia-continue statin/Zetia
# History of ulcerative colitis-continue mesalamine
# DVT prophylaxis-Lovenox
# Full code
Discussed with at bed side
Discussed with nursing
Called and left a message
feels that he would be better at home but he is ambulating better. She states that since COVID in December has had episodes of confusion .
Anticipated Discharge: Today
Subjective/Interval History
-
Date of Service: September 19, 2023
Objective Data
-
Labs:
Laboratory Results
09/19/23
06:00
WBC Cancelled
Hgb Cancelled
Hct Cancelled
Plt Count Cancelled
Sodium Cancelled
Potassium Cancelled
Chloride Cancelled
Carbon Dioxide Cancelled
BUN Cancelled
Creatinine Cancelled
Glucose Cancelled
Calcium Cancelled
Vital Signs:
Vital Signs
Temp Pulse Resp BP Pulse Ox
97.6 F 102 18 138/76 92
09/19/23 07:30 09/19/23 07:30 09/19/23 07:30 09/19/23 07:30 09/19/23 07:30
I&O
09/18/23 09/19/23 09/20/23
06:59 06:59 06:59
Intake Total 840 / 840
Output Total 650 / 650 300 / 300
Balance -650 / -650 540 / 540
--- NOTE | 2023-09-19 13:31 | W.DS.TRANS ---
Addendum entered and electronically signed by Malika Dent MD 09/19/23 14:55:
Dictation- [id number]
Original Note:
DC Summary - [employer]
-
Discharge Instructions:
Discharge Diagnosis/Procedures Dementia, hypertension, bioprosthetic aortic and
mitral valve, atrial flutter, history of stroke
, high cholesterol, ulcerative colitis
Diet As tolerated
Activity As tolerated,With assistance
Driving Restrictions No driving
Other Services VN,PT
Instructions:
Stand-Alone Forms:
Changes to Home Medications: Yes
Discharge Medications:
DC Medications w/original date entered in [employer]
atorvastatin 40 mg tablet 40 mg PO QPM High Cholesterol 07/01/15
mesalamine 1.2 gram tablet,delayed release (Lialda) 2.4 g PO DAILY Gastrointestinal Issue 04/12/17
ezetimibe 10 mg tablet 10 mg PO DAILY High Cholesterol 09/17/23
amlodipine 5 mg tablet 7.5 mg (1.5 x 5 mg) PO DAILY Blood pressure #30 tabs 09/18/23
metoprolol tartrate 25 mg tablet 12.5 mg (1/2 x 25 mg) PO BID Blood pressure #60 tabs 09/18/23
multivitamin with folic acid 400 mcg tablet (Tab-A-Lisa) 1 tab PO DAILY Supplement ##0 09/18/23
polyethylene glycol 3350 17 gram oral powder packet (HealthyLax) 17 g PO DAILYPRN PRN constipation #0 ea 09/18/23
Home Medication Changes
new
miralax
Norvasc increased
Pending Results: No
[2023-09-19 13:51] VITALS: BP 122/66
--- NOTE | 2023-09-19 14:18 | CM ---
Patient seen today. IMM signed & placed in chart.
Sitting in chair outside nurses station eating breakfast.
Spoke with Dr. Dent regarding order for HH
Patient given options on agencies and referral placed to [facility].
CM called [facility] & they service patient's area.
PLAN: Discharge to home with [facility].
to transport home.
[facility] fax #: [phone]
[2023-09-19 15:10] VITALS: BP 108/64
== END 2023-09-19 16:56 | disposition home health service (06) | DRG 884 ==
LOC: 4 EAST ACU 23:23
PROVIDERS: Emergency Medicine; Nurse Practitioner; Registered Nurse; ADMITTING PHYSICIAN Hospitalist; ATTENDING PHYSICIAN Hospitalist; CONSULT PHYSICIAN Student in an Organized Health Care Education/Training Program; EMERGENCY PHYSICIAN Emergency Medicine; FAMILY PHYSICIAN Family Medicine
DX: F03.C0 Unspecified dementia, severe, without behavioral disturbance, psychotic disturbance, mood disturbance, and anxiety (principal); G93.41 Metabolic encephalopathy; I48.92 Unspecified atrial flutter; K51.90 Ulcerative colitis, unspecified, without complications; I10 Essential (primary) hypertension; E78.00 Pure hypercholesterolemia, unspecified; Z86.73 Personal history of transient ischemic attack (TIA), and cerebral infarction without residual deficits; Z86.16 Personal history of COVID-19; Z95.2 Presence of prosthetic heart valve
CPT/HCPCS: 70450; 70551; 71046; 73030; 80048; 80053; 81003; 81015; 85025; 85027; 87811; 96360; 97163; 97166; 99285

== ENCOUNTER → 2023-10-23 10:36 | Outpatient (REF) | payer OTHER, SELFPAY | LOC: RAD 10:36 | PROVIDERS: ATTENDING PHYSICIAN Internal Medicine Cardiovascular Disease; FAMILY PHYSICIAN Family Medicine | DX: Z98.890 Other specified postprocedural states (principal) | CPT/HCPCS: 93880 ==

== ENCOUNTER 2024-07-31 14:47 | Emergency (ER) | payer OTHER, SELFPAY ==
[2024-07-31] VITALS (7 sets, daily range): BP systolic 122–169; BP diastolic 73–100; BMI 26.6
--- NOTE | 2024-07-31 15:52 | ED.GENMED ---
History of Present Illness
<Beverly Blanco PA-C - Last Filed: 07/31/24 21:45>
General
Chief Complaint: Blood Pressure Problem
Source: patient and spouse
Exam Limitations: none
Time Seen by Provider: 07/31/24 15:05
Nursing documentation reviewed up to this point in time: agreed with
History of Present Illness
History of Present Illness:
Patient is an 84-year-old male with history of hyperlipidemia, mitral regurgitation, aortic stenosis who presents to the emergency department for evaluation of low blood pressure at home. Patient's states that he seemed very tired today and
was sleeping more than usual. She then took his blood pressure at home and found it to be 116/75 which she states is 'low for him'. She states that his typical blood pressure ranges in the 120s/70s.
Given the fatigue and low BP at home�patient's brought him to the emergency department for evaluation to ensure that he is not dehydrated.
They deny any fever or chills. They deny any chest pain, shortness of breath, or abdominal pain. He has no cough. He denies any dysuria. He is ambulating at his baseline.
Patient does have a history of dementia however states his mental status has been at his baseline.
Past History
<Beverly Blanco PA-C - Last Filed: 07/31/24 21:45>
Past History
ED Past Medical History: HTN, Hypercholesterolemia, Valvular disease (Aortic stenosis) and Other (TIA, diverticulitis, pulmonary fibrosis, dementia, ulcerative colitis)
ED Past Surgical History: Appendectomy, Cardiac (bioprosthetic aortic and mitral valve replacement 2016, CABG), Tonsilectomy and Other (left carotid endarterectomy, herniorrhaphy, Left hernia repair)
Social History
Tobacco: Non-smoker
Alcohol: None
Personal:
Living: with family
Employment: Retired
Family History
Family History: Other (reviewed and non-contributory)
Review of Systems
<Beverly Blanco PA-C - Last Filed: 07/31/24 21:45>
Review of Systems
Allergies reviewed?: Yes
All Other Systems: ROS reviewed and negative except as documented in HPI and ROS
Phy Exam
<Beverly Blanco PA-C - Last Filed: 07/31/24 21:45>
Physical Exam
Physical Exam:
Vitals: Mildly hypertensive, otherwise vital signs stable. Afebrile
General: Patient is well appearing, no acute distress
Skin: Warm and dry, no rashes or lesions
Head: Normocephalic, atraumatic
Eyes: Sclera nonicteric.
Throat: Protecting airway
Neck: Normal ROM, no cervical spine tenderness, no meningismus. No JVD
Cardiac: Regular rate and rhythm, no murmurs.
Pulm: Normal respiratory effort, no wheezes, rales, rhonchi heard on exam
.
Abdomen: Abdomen soft and nontender.
Extremities: No evidence of cyanosis or edema. Strength 5/5 in bilateral upper and lower extremities.
Neuro: AAOx1 to person, not place or time. Moving all extremities. No focal deficits.
Psychiatric: Normal affect.
Course
<Beverly Blanco PA-C - Last Filed: 07/31/24 21:45>
Orders/Labs/Results
Orders:
Orders
07/31/24 15:47
0.9% Sodium Chloride 500 ml [Nss] 500 ml IV BOLUS
07/31/24 15:49
Electrocardiogram (*1) Urgent
Reason for Study: Fatigue / Weakness
07/31/24 15:50
EKG- Treatment ONCE
07/31/24 15:56
COVID-19 Antigen Urgent
Source: Nasal Swab
Complete Blood Count/With Diff Urgent
Comprehensive Metabolic Panel Urgent
Urinalysis Reflex To Culture Urgent
Date Specimen was Collected: 07/31/24
Time Specimen was Collected: 15:51
Urine Microscopic Reflex Cult Urgent
Influenza A+B Rapid Molecular Urgent
BONITA Source: Nasal Swab
Specimen Description:
Urine Culture Urgent
BONITA Source: U
Specimen Description:
Date Specimen was Collected: 07/31/24
Time Specimen was Collected: 15:51
Abnormal Lab Results
07/31/24
15:56
RBC 4.34 L 10^6/uL
(4.70-6.10)
Absolute Lymphs (auto) 1.1 L 10^3/uL
(1.2-3.4)
Absolute Monos (auto) 0.9 H 10^3/uL
(0.1-0.6)
Lymphocytes % 19.3 L %
(20.5-51.1)
Monocytes % 15.4 H %
(1.7-9.3)
Carbon Dioxide 32 H mmol/L
(22-30)
BUN 24 H mg/dl
(9-20)
Ur Occult Blood Reflex 1+ A
(Negative)
Urine Bacteria (Reflex) Many A
(Negative)
Urine Albumin (Reflex) 1+ A
(Neg - Trace)
07/31/24 15:56
07/31/24 15:56
Vital Signs
Initial and Last Documented VS:
Initial Vital Signs
Temp Pulse Resp BP Pulse Ox
97.7 F 72 18 153/78 94
07/31/24 14:53 07/31/24 14:53 07/31/24 14:53 07/31/24 14:53 07/31/24 14:53
Last Documented Vital Signs
Temp Pulse Resp BP Pulse Ox
98.9 F 86 16 137/73 98
07/31/24 16:00 07/31/24 16:38 07/31/24 18:00 07/31/24 18:00 07/31/24 18:00
<Kyle Park, DO - Last Filed: 07/31/24 15:55>
Orders/Labs/Results
Orders:
Orders
07/31/24 15:47
0.9% Sodium Chloride 500 ml [Nss] 500 ml IV BOLUS
07/31/24 15:49
Electrocardiogram (*1) Urgent
Reason for Study: Fatigue / Weakness
07/31/24 15:50
EKG- Treatment ONCE
07/31/24 15:56
COVID-19 Antigen Urgent
Source: Nasal Swab
Complete Blood Count/With Diff Urgent
Comprehensive Metabolic Panel Urgent
Urinalysis Reflex To Culture Urgent
Date Specimen was Collected: 07/31/24
Time Specimen was Collected: 15:51
Urine Microscopic Reflex Cult Urgent
Influenza A+B Rapid Molecular Urgent
BONITA Source: Nasal Swab
Specimen Description:
Urine Culture Urgent
BONITA Source: U
Specimen Description:
Date Specimen was Collected: 07/31/24
Time Specimen was Collected: 15:51
Abnormal Lab Results
07/31/24
15:56
RBC 4.34 L 10^6/uL
(4.70-6.10)
Absolute Lymphs (auto) 1.1 L 10^3/uL
(1.2-3.4)
Absolute Monos (auto) 0.9 H 10^3/uL
(0.1-0.6)
Lymphocytes % 19.3 L %
(20.5-51.1)
Monocytes % 15.4 H %
(1.7-9.3)
Carbon Dioxide 32 H mmol/L
(22-30)
BUN 24 H mg/dl
(9-20)
Ur Occult Blood Reflex 1+ A
(Negative)
Urine Bacteria (Reflex) Many A
(Negative)
Urine Albumin (Reflex) 1+ A
(Neg - Trace)
07/31/24 15:56
07/31/24 15:56
Vital Signs
Initial and Last Documented VS:
Initial Vital Signs
Temp Pulse Resp BP Pulse Ox
97.7 F 72 18 153/78 94
07/31/24 14:53 07/31/24 14:53 07/31/24 14:53 07/31/24 14:53 07/31/24 14:53
Last Documented Vital Signs
Temp Pulse Resp BP Pulse Ox
98.9 F 86 16 137/73 98
07/31/24 16:00 07/31/24 16:38 07/31/24 18:00 07/31/24 18:00 07/31/24 18:00
<Beverly Blanco PA-C - Last Filed: 07/31/24 21:45>
MDM/Problems Addressed
Differential Diagnosis Includes:
Not limited to: Acute dehydration, viral illness, cardiac arrhythmia, medication side effect, etc.
MDM/Problems Addressed:
84 year-old male presenting with one day of fatigue and blood pressure concerns at home. states patient was sleeping more today than normal and his blood pressure was 116/75 which is on the lower side for him. No other complaints. No change of
mental status. Blood pressure of 153/78 on arrival with otherwise normal vital signs. Physical exam as above. Will check basic labs, UA, EKG and viral studies given fatigue and mild weakness.
No Neuro deficits or change of mental status to suggest central etiology � do not feel CT scan indicated at this time. We give IV fluids and monitor patient.
Update: labs are reviewed. Mild elevation in BUN suggesting small degree of dehydration. Urine does not appear infected. EKG without acute ischemic changes or arrhythmia. Viral studies negative. Patient received IVF in ED. He remains normotensive
if not slightly hypertensive and otherwise stable. Possible component of mild dehydration today however no indication of more serious etiology. He has remained comfortable and well appearing and ultimately feel he is stable for discharge home with
primary care follow up. Advised to stay well hydrated and continue medications as prescribed. Return precautions discussed.
Chronic conditions affecting care:
N/A
Acute Exacerbation and/or Progression of Chronic Illness:
N/A
<Beverly Blanco PA-C - Last Filed: 07/31/24 21:45>
*EKG
Interpreted by ED Provider?: Yes
EKG Intrepretation Date: 07/31/24
Interpretation: abnormal
Comparison EKG: no changes
Heart Rate: 68
Rate: normal
Rhythm: sinus
Amorita: normal axis
Interval: long QT
QRS Pattern: normal QRS
Ischemia: non-specific ST changes
*General Office Dispatcher Interpretation
Rate: normal
Interpretation: normal
Heart Rate: 82
Rhythm: sinus
*Critical Care Note
Total Time (30-74mins, 75-104mins- exclusive of procedures): Not Applicable
<Kyle Park DO - Last Filed: 07/31/24 15:55>
*Pulse Oximetry
Patient hypoxic: no
Comment: 99
ED Attending Note
<Beverly Blanco PA-C - Last Filed: 07/31/24 21:45>
-
Portions of this chart may have been created with voice recognition software.� Occasional wrong word or��sound alike� substitutions may have occurred due to the inherent limitations of voice recognition software.
<Kyle Park DO - Last Filed: 07/31/24 15:55>
ED Attending Note
Patient seen and examined by attending physician: Yes
I performed the substantive portion of visit, reviewed & personally made and approve the management plan that is documented in note by myself or JORI.: Yes
ED Attending Note:
Seen with PA examined independently agree with assessment and plan healthy appearing male presented with modestly low blood pressure with weakness
Discharge Plan
Departure
Patient Disposition: Home (Routine Discharge)
Date of Disposition: 07/31/24
Time of Disposition: 17:39
Patient with high blood pressure during this ER visit?: Yes
Condition: Good
Covid-19: Negative COVID-19
Discharge Problem:
Dehydration, Fatigue
Instructions: Fatigue (DC), Dehydration in adults - ED discharge instructions, BLOOD PRESSURE
Prescriptions:
No Action
atorvastatin 40 MG tablet
40 mg PO QPM
mesalamine [Lialda] 1.2 GM tablet,delayed release (DR/EC)
2.4 g PO DAILY
ezetimibe 10 mg Tablet
10 mg PO DAILY
polyethylene glycol 3350 [HealthyLax] 17 gram Powder In Packet
17 g PO DAILYPRN PRN (Reason: constipation) Qty: 0 0RF
amlodipine 5 mg Tablet
7.5 mg PO DAILY Qty: 30 0RF
metoprolol tartrate 25 MG tablet
12.5 mg PO BID Qty: 60 3RF
multivitamin with folic acid [Tab-A-Lisa] 1 TABLET tablet
1 tab PO DAILY Qty: 0 0RF
Referrals:
Roxana Weber DO [Family Provider, Family Practice] - Follow up in 5-7 days
Activity Restrictions/Additional Instructions:
RETURN TO THE EMERGENCY DEPARTMENT WITH ANY FEVER, CHILLS, CHANGES IN MENTAL STATUS, LIGHTHEADEDNESS/DIZZINESS, CHEST PAIN OR SHORTNESS OF BREATH, OR ANY OTHER CONCERNS
- As discussed�your lab work showed evidence of mild dehydration while in the emergency department. You were given IV fluids.
- It is important stay well-hydrated at home. Continue to take your medications as prescribed.
- Follow-up with primary care for further evaluation/management to ensure that symptoms are improving
Monitor your symptoms closely and return to the emergency department with any acute worsening/new symptoms or any other concerns
Interventions
Interventions:
*Risk Screen - Suicide Last Done: 07/31/24 14:53
*General Assessment Last Done: 07/31/24 14:53
*Neglect/Abuse Screening Last Done: 07/31/24 14:53
*ED- Fall Risk Assessment Last Done: 07/31/24 16:04
*Nursing Disposition Last Done: 07/31/24 18:05
ED- Cardiac Assessment Last Done: 07/31/24 16:04
ED- Neurological Assessment Last Done: 07/31/24 16:04
ED- Pulmonary Assessment Last Done: 07/31/24 16:04
Discharge Date and Time
Discharge Date/Time: 07/31/24 18:05
Print Language: PORTUGUESE
[2024-07-31] MEDS: NSS 500 IV (15:54)
[2024-07-31 16:14] LABS: % Basophils 0.7 % (0-2); % Eosinophils 0.2 % (0-6); % Immature Granulocytes 0.2 % (0-0.5); % Lymphocytes 19.3 % (20.5-51.1); % Monocytes 15.4 % (1.7-9.3); % Neutrophils 64.2 % (42.2-75.2); Absolute Lymphocytes 1.1 10^3/uL (1.2-3.4); Absolute Monocytes 0.9 10^3/uL (0.1-0.6); Absolute Neutrophils 3.8 10^3/uL (1.4-6.5); Hematocrit 39.1 % (39.0-52.0); Hemoglobin 13.3 g/dL (13.0-18.0); Mean Corpuscular Hgb 30.6 pg (27.0-31.0); Mean Corpuscular Volume 90.1 fL (80.0-94.0); Mean Platelet Volume 9.6 fL (7.4-10.4); Nucleated Red Blood Cells % 0 % (-); Platelet Count 160 10^3/uL (130-400); Red Blood Cell Count 4.34 10^6/uL (4.70-6.10); Red Cell Dist. Width 12.3 % (11.5-14.5); White Blood Cell Count 5.9 10^3/uL (4.8-10.8)
[2024-07-31 16:24] LABS: Urine Albumin 1+ (Neg - Trace); Urine Bilirubin Negative (Negative); Urine Character Clear (Clear); Urine Color Yellow; Urine Glucose Negative (Negative); Urine Ketone Negative (Negative); Urine Leukocyte Negative (Negative); Urine Nitrite Negative (Negative); Urine Occult Blood 1+ (Negative); Urine Urobilinogen Negative (Neg - 1+)
[2024-07-31 16:29] LABS: ALT (SGPT) 22 U/L (0-50); AST (SGOT) 28 U/L (17-59); Alkaline Phosphatase 50 U/L (38-126); Blood Urea Nitrogen 24 mg/dl (9-20); Calcium 9.2 mg/dl (8.4-10.2); Carbon Dioxide 32 mmol/L (22-30); Chloride 103 mmol/L (98-107); Glucose 83 mg/dl (70-99); Potassium 4.5 mmol/L (3.5-5.1); Sodium 138 mmol/L (135-145); Total Bilirubin 0.7 mg/dl (0.2-1.3); Total Protein 6.8 g/dl (6.3-8.2); eGFR > 60.00
[2024-07-31 16:31] LABS: Urine Squamous Cell >30 /LPF (Few)
[2024-07-31 16:32] LABS: Urine Calcium Oxalate Crystals Seen; Urine Mucus Many
[2024-07-31 16:33] LABS: Urine Bacteria Many (Negative); Urine Red Blood Cell 0-2 /HPF (0-2); Urine White Cell 0-2 /HPF (0-5)
[2024-07-31 16:45] LABS: COVID-19 Antigen Negative (Negative)
== END 2024-07-31 18:05 | disposition home or self-care (01) ==
LOC: EMR 14:47
PROVIDERS: Physician Assistant; EMERGENCY PHYSICIAN Emergency Medicine; FAMILY PHYSICIAN Family Medicine
DX: E86.0 Dehydration (principal); R53.83 Other fatigue; I10 Essential (primary) hypertension; E78.00 Pure hypercholesterolemia, unspecified; J84.10 Pulmonary fibrosis, unspecified; F03.90 Unspecified dementia, unspecified severity, without behavioral disturbance, psychotic disturbance, mood disturbance, and anxiety; I35.0 Nonrheumatic aortic (valve) stenosis; Z90.49 Acquired absence of other specified parts of digestive tract; Z95.1 Presence of aortocoronary bypass graft; Z86.73 Personal history of transient ischemic attack (TIA), and cerebral infarction without residual deficits; Z11.52 Encounter for screening for COVID-19
CPT/HCPCS: 99284; 96360; 80053; 81003; 81015; 85025; 87086; 87502; 87811; 93005

== ENCOUNTER 2024-12-26 08:41 | Inpatient (IN) | payer OTHER, SELFPAY ==
[2024-12-25 15:40] VITALS: BP 123/64
[2024-12-25 15:57] LABS: Hematocrit 40.0 % (39.0-52.0); Hemoglobin 13.7 g/dL (13.0-18.0); Mean Corp Hgb Conc. 34.3 g/dL (33.0-37.0); Mean Corpuscular Volume 90.1 fL (80.0-94.0); Nucleated Red Blood Cells % 0 % (-); Platelet Count 149 10^3/uL (130-400); Red Cell Dist. Width 12.3 % (11.5-14.5)
[2024-12-25 16:20] LABS: ALT (SGPT) 24 U/L (0-50); AST (SGOT) 40 U/L (17-59); Albumin 4.3 g/dl (3.5-5.0); Alkaline Phosphatase 40 U/L (38-126); Blood Urea Nitrogen 26 mg/dl (9-20); Calcium 9.4 mg/dl (8.4-10.2); Carbon Dioxide 30 mmol/L (22-30); Chloride 99 mmol/L (98-107); Glucose 129 mg/dl (70-99); Potassium 4.3 mmol/L (3.5-5.1); Sodium 137 mmol/L (135-145); Total Protein 7.1 g/dl (6.3-8.2); eGFR > 60.00
--- NOTE | 2024-12-25 16:46 | ED.GENMED ---
History of Present Illness
<Kennedy Elkins PA-C - Last Filed: 12/25/24 19:51>
General
Chief Complaint: Fatigue
Source: patient
Exam Limitations: none
Time Seen by Provider: 12/25/24 16:24
History of Present Illness
History of Present Illness:
84-year-old male with history of dementia lives with presents with he states the patient has been very weak since this morning. He typically ambulates on his own however today even with 2 people assisting him he could not ambulate. She
also notes increased sputum production since today. Patient cannot provide any valuable history given his level of dementia. His does note that he has been eating and drinking well lately. No other complaints
Past History
<Kennedy Elkins PA-C - Last Filed: 12/25/24 19:51>
Past History
ED Past Medical History: HTN, Hypercholesterolemia, Valvular disease (Aortic stenosis) and Other (TIA, diverticulitis, pulmonary fibrosis, dementia, ulcerative colitis)
ED Past Surgical History: Appendectomy, Cardiac (bioprosthetic aortic and mitral valve replacement 2016, CABG), Tonsilectomy and Other (left carotid endarterectomy, herniorrhaphy, Left hernia repair)
Social History
Tobacco: Non-smoker
Alcohol: None
Personal:
Living: with family
Employment: Retired
Family History
Family History: Other (reviewed and non-contributory)
Phy Exam
<Kennedy Elkins PA-C - Last Filed: 12/25/24 19:51>
Physical Exam
Physical Exam:
General: Unkempt male no acute respiratory distress.
HEENT: Normal cephalic atraumatic mucosa slightly dry
Heart: RRR,
Lungs: CTA
Abd: soft, nontender
Neuro: aloof, but cooperative.
Ext: no cyanosis or edema
Course
<Kennedy Elkins PA-C - Last Filed: 12/25/24 19:51>
Orders/Labs/Results
Orders:
Orders
12/25/24 15:50
Complete Blood Count/With Diff Urgent
Comprehensive Metabolic Panel Urgent
12/25/24 16:33
0.9% Sodium Chloride 1000 ml [Nss] 1,000 ml IV BOLUS
CR Chest Single View Urgent
Reason For Exam: cough, weakness/ONE VIEW ONLY PT HAS DEMENTIA
12/25/24 16:51
COVID-19 Antigen Urgent
Source: Nasal Swab
NT-proBNP Urgent
Urinalysis Reflex To Culture Urgent
Date Specimen was Collected: 12/25/24
Time Specimen was Collected: 16:35
Urine Microscopic Reflex Cult Urgent
Influenza A+B Rapid Molecular Urgent
BONITA Source: Nasal Swab
Specimen Description:
Urine Culture Urgent
BONITA Source: U
Specimen Description:
Date Specimen was Collected: 12/25/24
Time Specimen was Collected: 16:35
12/25/24 19:33
CefTRIAXone [Rocephin] 1,000 mg IV NOW STA
Abnormal Lab Results
12/25/24 12/25/24
15:50 16:51
WBC 17.7 H 10^3/uL
(4.8-10.8)
RBC 4.44 L 10^6/uL
(4.70-6.10)
Abs Immat Gran (auto) 0.1 H 10^3/uL
(0-0.05)
Absolute Neuts (auto) 16.3 H 10^3/uL
(1.4-6.5)
Absolute Lymphs (auto) 0.4 L 10^3/uL
(1.2-3.4)
Absolute Monos (auto) 0.9 H 10^3/uL
(0.1-0.6)
Neutrophils % 92.0 H %
(42.2-75.2)
Lymphocytes % 2.2 L %
(20.5-51.1)
BUN 26 H mg/dl
(9-20)
Glucose 129 H mg/dl
(70-99)
Ur Occult Blood Reflex 4+ A
(Negative)
Urine Nitrite (Reflex) Positive A
(Negative)
Leukocyte Esterase Rfl 3+ A
(Negative)
Urine RBC 80-90 A /HPF
(0-2)
Urine WBC (Reflex) 70-80 A /HPF
(0-5)
Urine Bacteria (Reflex) Moderate A
(Negative)
Urine Albumin (Reflex) 2+ A
(Neg - Trace)
12/25/24 15:50
12/25/24 15:50
Vital Signs
Initial and Last Documented VS:
Initial Vital Signs
Temp Pulse Resp BP Pulse Ox
98.4 F 82 18 123/64 97
12/25/24 15:40 12/25/24 15:40 12/25/24 15:40 12/25/24 15:40 12/25/24 15:40
Last Documented Vital Signs
Temp Pulse Resp BP Pulse Ox
98.4 F 73 19 123/64 97
12/25/24 15:40 12/25/24 17:15 12/25/24 17:15 12/25/24 15:40 12/25/24 16:48
<Dalton Starkey MD - Last Filed: 12/25/24 18:14>
Orders/Labs/Results
Orders:
Orders
12/25/24 15:50
Complete Blood Count/With Diff Urgent
Comprehensive Metabolic Panel Urgent
12/25/24 16:33
0.9% Sodium Chloride 1000 ml [Nss] 1,000 ml IV BOLUS
CR Chest Single View Urgent
Reason For Exam: cough, weakness/ONE VIEW ONLY PT HAS DEMENTIA
12/25/24 16:51
COVID-19 Antigen Urgent
Source: Nasal Swab
NT-proBNP Urgent
Urinalysis Reflex To Culture Urgent
Date Specimen was Collected: 12/25/24
Time Specimen was Collected: 16:35
Urine Microscopic Reflex Cult Urgent
Influenza A+B Rapid Molecular Urgent
BONITA Source: Nasal Swab
Specimen Description:
Urine Culture Urgent
BONITA Source: U
Specimen Description:
Date Specimen was Collected: 12/25/24
Time Specimen was Collected: 16:35
12/25/24 19:33
CefTRIAXone [Rocephin] 1,000 mg IV NOW STA
Abnormal Lab Results
12/25/24 12/25/24
15:50 16:51
WBC 17.7 H 10^3/uL
(4.8-10.8)
RBC 4.44 L 10^6/uL
(4.70-6.10)
Abs Immat Gran (auto) 0.1 H 10^3/uL
(0-0.05)
Absolute Neuts (auto) 16.3 H 10^3/uL
(1.4-6.5)
Absolute Lymphs (auto) 0.4 L 10^3/uL
(1.2-3.4)
Absolute Monos (auto) 0.9 H 10^3/uL
(0.1-0.6)
Neutrophils % 92.0 H %
(42.2-75.2)
Lymphocytes % 2.2 L %
(20.5-51.1)
BUN 26 H mg/dl
(9-20)
Glucose 129 H mg/dl
(70-99)
Ur Occult Blood Reflex 4+ A
(Negative)
Urine Nitrite (Reflex) Positive A
(Negative)
Leukocyte Esterase Rfl 3+ A
(Negative)
Urine RBC 80-90 A /HPF
(0-2)
Urine WBC (Reflex) 70-80 A /HPF
(0-5)
Urine Bacteria (Reflex) Moderate A
(Negative)
Urine Albumin (Reflex) 2+ A
(Neg - Trace)
12/25/24 15:50
12/25/24 15:50
Vital Signs
Initial and Last Documented VS:
Initial Vital Signs
Temp Pulse Resp BP Pulse Ox
98.4 F 82 18 123/64 97
12/25/24 15:40 12/25/24 15:40 12/25/24 15:40 12/25/24 15:40 12/25/24 15:40
Last Documented Vital Signs
Temp Pulse Resp BP Pulse Ox
98.4 F 73 19 123/64 97
12/25/24 15:40 12/25/24 17:15 12/25/24 17:15 12/25/24 15:40 12/25/24 16:48
<Kennedy Elkins PA-C - Last Filed: 12/25/24 19:51>
*Pulse Oximetry
SaO2: 97
Oxygen Mode of Delivery: Room air
Patient hypoxic: no
*Critical Care Note
Total Time (30-74mins, 75-104mins- exclusive of procedures): Not Applicable
<Kennedy Elkins PA-C - Last Filed: 12/25/24 19:51>
Update Note
Update Note:
Workup consistent with UTI. Chest x-ray stable. White blood cell count reviewed and is 17.7. Fluids ordered Rocephin ordered. Discussed with emergency room attending. Given profound weakness we will mid to hospital in the setting of UTI
ED Attending Note
<Kennedy Elkins PA-C - Last Filed: 12/25/24 19:51>
-
Portions of this chart may have been created with voice recognition software.� Occasional wrong word or��sound alike� substitutions may have occurred due to the inherent limitations of voice recognition software.
<Dalton Starkey MD - Last Filed: 12/25/24 18:14>
ED Attending Note
Patient seen and examined by attending physician: Yes
I performed the substantive portion of visit, reviewed & personally made and approve the management plan that is documented in note by myself or JORI.: Yes
ED Attending Note:
84-year-old male with history significant dementia presents with general fatigue and weakness. Progressive over 24 hours. Patient has no complaints. Some slight cough per the . On exam patient is nontoxic. Chronically ill-appearing.
Significant dementia. Nonfocal exam. Alert to name only.
No respiratory distress. Lungs slightly distant. Heart regular rate and rhythm. Abdomen benign. General weakness but symmetrical.
Labs show a leukocytosis. Chest x-ray unremarkable. Await urinalysis.
Medical decision making clearly warrants admission for general fatigue and weakness. Leukocytosis. Await urinalysis. Nothing to support an acute neurologic issue.
Discharge Plan
Departure
Patient Disposition: Admit
Date of Disposition: 12/25/24
Time of Disposition: 19:50
Presentation/result/management discussed w/ accepting MD/DO: Hospitalist
Discharge Problem:
Acute UTI
Prescriptions:
No Action
atorvastatin 40 MG tablet
40 mg PO QPM
mesalamine [Lialda] 1.2 GM tablet,delayed release (DR/EC)
2.4 g PO DAILY
ezetimibe 10 mg Tablet
10 mg PO DAILY
polyethylene glycol 3350 [HealthyLax] 17 gram Powder In Packet
17 g PO DAILYPRN PRN (Reason: constipation) Qty: 0 0RF
amlodipine 5 mg Tablet
7.5 mg PO DAILY Qty: 30 0RF
metoprolol tartrate 25 MG tablet
12.5 mg PO BID Qty: 60 3RF
multivitamin with folic acid [Tab-A-Lisa] 1 TABLET tablet
1 tab PO DAILY Qty: 0 0RF
Referrals:
Roxana Weber DO [Family Provider, Family Practice]
Interventions
Interventions:
*Risk Screen - Suicide Last Done: 12/25/24 15:40
*General Assessment Last Done: 12/25/24 15:40
*Neglect/Abuse Screening Last Done: 12/25/24 15:40
*ED- Fall Risk Assessment Last Done: 12/25/24 17:17
SA-[id number]-[id number] Assessment Last Done: 12/25/24 17:16
Discharge Date and Time
Print Language: GEORGIAN
[2024-12-25] MEDS: NSS 1000 IV (17:09)
[2024-12-25 17:24] LABS: COVID-19 Antigen Negative (Negative)
[2024-12-25 18:54] LABS: Urine Character Cloudy (Clear)
[2024-12-25 19:26] LABS: Urine Red Blood Cell 80-90 /HPF (0-2); Urine Urothelial Cell 0-2 /LPF (FEW)
[2024-12-25 19:27] LABS: Urine White Cell 70-80 /HPF (0-5)
[2024-12-25 19:37] VITALS: BP 124/56
[2024-12-25 20:00] VITALS: BP 121/53
[2024-12-25] MEDS: ROCEPHIN 1000 MG IV (20:23)
--- NOTE | 2024-12-25 20:43 | HPS.HSE ---
Family Physician
-
Family Physician: Roxana Weber
Chief Complaint
-
generalized weakness
History of Present Illness
Patient is a 84-year-old male with past medical history significant for paroxysmal atrial flutter, hypertension, hypercholesterolemia and Alzheimer's disease who presented to [facility] ED for evaluation of generalized weakness. Patient family at bedside
to assist in HPI as patient is poor historian. Patient was at baseline yesterday and this morning was extremely weak and unable to get out of bed or stand on his own. Patient can normally ambulate short distances without assistance and longer
distances with walker. Patient has had a intermittent productive cough for the past 1-2 months. Has had poor PO intake recently and today had an episode of emesis. Denies known fever, chills, shortness of breath, chest pain, constipation, diarrhea
or urinary complaints.
Medical History
Past Medical History
Past Medical History: Reports Other
Additional Past Medical History:
paroxysmal atrial flutter
hypertension
hypercholesterolemia
Alzheimer's disease
aortic valve stenosis
mitral valve stenosis
ulcerative colitis
pulmonary fibrosis
Past Surgical History: Reports Other
Additional Past Surgical History:
aortic and mitral valve replacements
Social History
Tobacco: Non-smoker
Alcohol: None
Personal:
Living: With Family
Family History
Family History: Not pertinent
Allergies / Home Medications
Allergies reflects when Allergies were last updated in [employer].
Home Medications with original date entered in [employer]
Allergy/Medication List:
Allergies
Allergy/AdvReac Type Severity Reaction Status Date / Time
No Known Allergies Allergy Verified 12/25/24 15:40
Home Medications
atorvastatin 40 mg tablet 40 mg PO DAILY High Cholesterol 07/01/15
mesalamine 1.2 gram tablet,delayed release (Lialda) 2.4 g PO DAILY Gastrointestinal Issue 04/12/17
ezetimibe 10 mg tablet 10 mg PO DAILY High Cholesterol 09/17/23
polyethylene glycol 3350 17 gram oral powder packet (HealthyLax) 17 g PO DAILYPRN PRN constipation #0 ea 09/18/23
Centrum Silver 1 pill PO DAILY 12/25/24
amlodipine 5 mg tablet 2.5 mg PO DAILY Blood pressure 12/25/24
metoprolol tartrate 25 mg tablet 12.5 mg PO DAILY Blood pressure 12/25/24
sertraline 50 mg tablet 50 mg PO DAILY 12/25/24
Review of Systems
-
Unable to obtain full review of systems at this time due to: Dementia
History Source: Family
Constitutional: Denies Fever or Chills
EENT: Denies Sore Throat
Respiratory: Reports Cough (productive cough ); Denies Trouble Breathing
Cardiac: Denies Chest Pain, Diaphoresis, Palpitations or Syncope
Abdomen/GI: Reports Nausea and Vomiting; Denies Abdominal Pain, Diarrhea or Constipated
: Denies Dysuria, Frequency or Urgency
Musculoskeletal: Denies Joint Pain
Skin: Denies Rash
Neurological: Reports Weakness; Denies Dizzy, Headache or Numbness
Endocrine: Denies Polyuria or Polydipsia
Physical Exam
Vital Signs
Vital Signs
Temp Pulse Resp BP Pulse Ox
98.4 F 73 19 124/56 98
12/25/24 15:40 12/25/24 17:15 12/25/24 17:15 12/25/24 19:37 12/25/24 19:45
Physical Exam
General: Well Developed, Well Nourished, No Apparent Distress and Comfortable
HEENT: NormoCephalic, Nose Appears Normal and Ears Appear Normal
Respiratory: Clear and Non Labored Respirations; No Wheezes, Rales or Rhonchi
Cardiac: S1/S2 and Regular Rhythm
GI: Soft, Non Tender, Non Distended and Normal Bowel Sounds
Musculoskeletal: No Clubbing, No Cyanosis and No Edema
Skin: Warm and IV/Catheter Site
Neuro: Awake
Psych: Anxious, Apparent Dementia and Other (restlessness )
Laboratory Results
-
12/25/24 15:50
12/25/24 15:50
Laboratory Results
Total Bilirubin 1.0 mg/dl (0.2-1.3) 12/25/24 15:50
AST 40 U/L (17-59) 12/25/24 15:50
ALT 24 U/L (0-50) 12/25/24 15:50
Alkaline Phosphatase 40 U/L (38-126) 12/25/24 15:50
Data Reviewed
-
Diagnostic Radiology: Report Reviewed by me (CXR: 1. No radiographic evidence for pneumonia or acute pulmonary edema. 2. Mild cardiomegaly. 3. Previous aortic and mitral valve replacements. 4. Severe bilateral osteoarthritis of the
glenohumeral joints.)
Lab Data: Labs Reviewed by me (WBC 17.7, neut 92.0, pBNP 2700)
Impression/Plan
-
IMPRESSION/PLAN:
#generalized weakness 2/2 AFTT vs. infectious process
patient able to ambulate with walker at baseline, unable to stand on own today without significant assistance
poor PO intake recently
WBC 17.7, neut 92.0, pBNP 2700
Influenza: negative
Covid: negative
UA: indicative of UTI
Urine Cx: pending
CXR: 1. No radiographic evidence for pneumonia or acute pulmonary edema.
2. Mild cardiomegaly.
3. Previous aortic and mitral valve replacements.
4. Severe bilateral osteoarthritis of the glenohumeral joints.
Abd/Pel CT: pending
- Admit to med/surg
- IV ceftriaxone
- bladder scan/straight cath protocol
- supportive care
#paroxysmal atrial flutter
- continue metoprolol
#hypertension
- continue amlodipine
#hypercholesterolemia
- continue atorvastatin and ezetimibe
#Alzheimer's disease
- continue sertraline
Code status: full code
DVT prophylaxis: lovenox sq
--- NOTE | 2024-12-25 21:33 | W.PN.UPDATE ---
Update Note
Progress Note Update
Patient seen and congestion with nurse practitioner. I agree with the findings on history and physical. I concur with assessment and plan as stated.
Briefly, this is a 84-year-old male with past medical history significant for dementia, hypertension, hyperlipidemia, history of aortic stenosis, chronic pulmonary hypertension, chronic diastolic heart failure presenting to the emergency department
with increasing fatigue weakness that appeared abruptly centimeters. He is known to typically ambulate the short distance by himself and in a longer distance with a walker but he is not able to ambulate even with 2 people assisting him this
morning. Spouse does note increased sputum production today. Patient unable to provide any history.
On arrival in the emergency department he remains afebrile with a temp of 98.4, blood pressure is stable at 121/75 with a pulse of 75 and he was satting 97% on room air. Chest x-ray shows no acute infiltrate. CBC shows a white count of 17 but
otherwise unremarkable. BNP is elevated 2700. Electrolytes BUN and creatinine were in the normal range. UA is markedly positive for nitrites WBCs leukocyte esterase and bacteria.
Assessment and plan
84-year-old male with urinary tract infection and worsening confusion in the setting of chronic dementia.
UTI -by definition male with a UTI is complicated but patient has no known history of BPH stones or known urinary retention.
� [facility]
� Urine culture sent, blood cultures afebrile
� IV ceftriaxone for now
� Bladder scan as needed
� CT of the abdomen pelvis to rule out any stone obstructing
Dementia
-continue with sertraline
Hypertension
-Continue amlodipine and metoprolol, hold if hypotensive
-Continue statin and ezetimibe
DVT prophylaxis�Lovenox subcu
CODE STATUS�full code
[2024-12-25 22:00] VITALS: BP 145/96
[2024-12-25 23:00] VITALS: BP 145/62
[2024-12-25 23:46] VITALS: BMI 25.8
[2024-12-26] VITALS (14 sets, daily range): BP systolic 96–168; BP diastolic 47–87
[2024-12-26 05:50] LABS: Hematocrit 36.0 % (39.0-52.0); Hemoglobin 12.1 g/dL (13.0-18.0); Mean Corp Hgb Conc. 33.6 g/dL (33.0-37.0); Mean Corpuscular Volume 94.2 fL (80.0-94.0); Platelet Count 117 10^3/uL (130-400); Red Cell Dist. Width 12.4 % (11.5-14.5)
--- NOTE | 2024-12-26 08:47 | W.PN.HOSP.TC ---
Today's Communication/Plan
-
Antibiotics pending cultures
Bladder scan
Proscar and Flomax
CT head
Speech assessment
Gentle hydration
Assessment / Plan
Assessment / Plan
Impression
Toxic metabolic encephalopathy secondary to UTI
UTI/cystitis, concern for complicated UTI with bladder outlet obstruction.
Conditions prior to admission
ASCVD with history of TIA/CVA.
Left carotid artery stenosis with history of carotid enterectomy 2013.
Bioprosthetic aortic valve and mitral valve
Paroxysmal atrial flutter not on anticoagulation
Dyslipidemia
History of ulcerative colitis
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
Imaging
CT abdomen/pelvis without contra
IMPRESSION:
1. Mild diffuse urinary bladder wall thickening consistent with acute cystitis superimposed upon chronic urinary bladder outlet obstruction.
2. Severely enlarged prostate gland.
3. Moderate chronic bilateral renal disease.
4. Very severe calcific atherosclerotic plaque in the abdominal aorta, renal arteries, and iliac arteries.
5. Moderate amount of fecal material in the proximal colon.
6. Moderate to severe diverticulosis in the sigmoid colon.
7. Mild diffuse hepatic steatosis.
8. Small hiatal hernia.
9. Previous CABG surgery, aortic valve replacement, and mitral valve replacement.
10. Severe multilevel lumbar discogenic degenerative disease.
Echo 06/12
Small left ventricular size. Normal wall thickness and systolic function. No
regional wall motion abnormalities are seen. LV ejection fraction is 66% by
Hutchison's biplane method of discs. Diastolic function indeterminate.
Normal right ventricular size and function.
Normal atria.
S/P # 29 Bovine Magna tissue valve with peak/mean gradients across the mitral
valve of 10/3 mmHg respectively.
S/P #23 Bovine Magna tissue valve with peak/mean gradients across the aortic
valve of 10/6 mmHg respectively. No aortic regurgitation is seen.
Trace tricuspid regurgitation. Estimated pulmonary artery pressure of 31 mmHg
assuming a right atrial pressure of 3 mmHg.
When compared to prior study on 10/10/2018, there is no significant change.
Plan
Complicated UTI
Has been lethargic, although with no evidence of systemic infection or sepsis upon presentation
CT scan as above
Bladder scan in ED 271 mL. Had saturated diapers on arrival.
Check PSA, although possibly skewed in the settings of UTI
Initiate Proscar, and Flomax
Depends on further clinical course/retention may require inpatient urology evaluation
Urine cultures pending
Blood cultures pending (drawn after first dose of antibiotics)
Continued ceftriaxone
Continue bowel regimen with MiraLAX
Metabolic encephalopathy in the settings of UTI in patient with advanced dementia
He has a prior history of TIA and CVA as well as a flutter being not on anticoagulation
Check CT scan of the head
Monitor for improvement
Check B12, TSH.
Aspiration precautions
ASCVD with prior history of TIA CVA.
History of carotid enterectomy.
Echo as above
Paroxysmal atrial flutter.
Monitor on telemetry.
Continue metoprolol and Norvasc monitoring for hypotension
Continue atorvastatin and ezetimibe
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
MRI of the brain 06/12 with moderate to severe bilateral temporal lobe volume loss, moderate volume loss in the frontal and parietal lobe consistent with severe neurodegenerative disease probably Alzheimer disease.
CT head pending
Continue sertraline
PT/OT assessment
Discharge planning accordingly
History of ulcerative colitis
Formerly on mesalamine.
Full code
DVT prophylaxis Lovenox
Anticipated Discharge: 24 - 48 hours
Subjective/Interval History
-
Date of Service: December 26, 2024
Objective Data
-
Labs:
Laboratory Results
12/26/24
05:01
WBC 11.3 H
Hgb 12.1 L
Hct 36.0 L
Plt Count 117 L D
Vital Signs:
Vital Signs
Temp Pulse Resp BP Pulse Ox
98.2 F 58 14 101/51 98
12/26/24 06:19 12/26/24 06:19 12/26/24 06:19 12/26/24 06:18 12/26/24 06:19
Physical Exam
-
General: Well Developed and No Apparent Distress
HEENT: Normocephalic, Atraumatic and Moist Mucous Membranes
Respiratory: Clear to Auscultation
Cardiac: Regular Rhythm and S1/S2; Negative Murmur, Rub or Gallop
GI: Soft, Nontender, Nondistended and Normal Bowel Sounds; Negative Organomegaly
Rectal: Deferred by Provider
Musculoskeletal: No Clubbing, No Cyanosis and No Edema
Skin: Negative Rash
Neuro: Other (Lethargic); Negative Awake, Alert or Oriented
[2024-12-26] MEDS: ZOLOFT PO ×2 (09:06→09:18)
[2024-12-26] MEDS: LIPITOR PO ×2 (09:06→09:17)
[2024-12-26] MEDS: LOPRESSOR PO ×2 (09:06→09:18)
[2024-12-26] MEDS: ZETIA PO ×2 (09:06→09:18)
[2024-12-26] MEDS: NORVASC PO ×2 (09:06→09:18)
[2024-12-26] MEDS: NSS 1000 IV (09:31)
[2024-12-26] MEDS: PROSCAR PO (09:40)
[2024-12-26] MEDS: FLOMAX PO (09:40)
[2024-12-26 10:49] LABS: PSA, Total - Screen 4.65 ng/ml (0.0-4.0); TSH 0.60 uIU/ml (0.47-4.68)
[2024-12-26 11:08] LABS: Vitamin B12 318 pg/ml (239-931)
--- NOTE | 2024-12-26 12:10 | CM ---
Chart reviewed and patient working with PT and OT at ED bedside
Spoke with son Richie over the phone
Pt lives in a multilevel home with and dtr
Per son he is usually ambulating with walker
no other DME
PCP Dr. Roxana Weber
RX plan
Pharmacy [facility] not sure of the name
SNF no
DCP is to go home with services vs SNF
PT evaluation in progress
CM will follow up for any dcp needs
--- NOTE | 2024-12-26 12:43 | PTOTSP ---
Speech Therapy Assessment
Oral pharyngeal swallow deemed within functional limits without overt signs of aspiration.
Recommend
1. Continue current diet of regular solids and thin liquids.
2. Meds as best tolerated.
No further skilled ST indicated at this time.
[2024-12-26] MEDS: LOVENOX SC (18:22)
[2024-12-26] MEDS: ROCEPHIN 1000 MG IV (20:39)
[2024-12-26] MEDS: STERILE WATER FOR INJECTION 10 ML IV (20:39)
[2024-12-27 03:00] VITALS: BP 164/86
[2024-12-27 07:00] VITALS: BP 145/80
[2024-12-27 08:21] LABS: Hematocrit 38.4 % (39.0-52.0); Hemoglobin 13.4 g/dL (13.0-18.0); Mean Corp Hgb Conc. 34.9 g/dL (33.0-37.0); Mean Corpuscular Volume 89.5 fL (80.0-94.0); Nucleated Red Blood Cells % 0 % (-); Platelet Count 129 10^3/uL (130-400); Red Cell Dist. Width 12.2 % (11.5-14.5)
[2024-12-27 08:42] LABS: Blood Urea Nitrogen 19 mg/dl (9-20); Calcium 8.9 mg/dl (8.4-10.2); Carbon Dioxide 27 mmol/L (22-30); Chloride 105 mmol/L (98-107); Estimated Creatinine Clearance 58 ml/min; Glucose 89 mg/dl (70-99); Potassium 3.4 mmol/L (3.5-5.1); Sodium 138 mmol/L (135-145); eGFR > 60.00
--- NOTE | 2024-12-27 09:36 | W.PN.HOSP.TC ---
Today's Communication/Plan
-
Antibiotics. PT OT. Potassium supplementation.
Assessment / Plan
Assessment / Plan
Physical exam:
General: Acutely ill
HEENT: Normocephalic, Atraumatic and Moist Mucous Membranes
Respiratory: Clear to Auscultation; Negative Wheezes, Rales or Rhonchi
Cardiac: Regular Rhythm and S1/S2
GI: Soft, Nontender and Nondistended
Musculoskeletal: No Clubbing, No Cyanosis and No Edema
Neuro: Awake, Alert and Disoriented, no neurological deficit
Psych: Calm
A/P:
Impression
Toxic metabolic encephalopathy secondary to UTI
UTI/cystitis, concern for complicated UTI with bladder outlet obstruction.
Conditions prior to admission
ASCVD with history of TIA/CVA.
Left carotid artery stenosis with history of carotid enterectomy 2013.
Bioprosthetic aortic valve and mitral valve
Paroxysmal atrial flutter not on anticoagulation
Dyslipidemia
History of ulcerative colitis
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
Imaging
CT abdomen/pelvis without contra
IMPRESSION:
1. Mild diffuse urinary bladder wall thickening consistent with acute cystitis superimposed upon chronic urinary bladder outlet obstruction.
2. Severely enlarged prostate gland.
3. Moderate chronic bilateral renal disease.
4. Very severe calcific atherosclerotic plaque in the abdominal aorta, renal arteries, and iliac arteries.
5. Moderate amount of fecal material in the proximal colon.
6. Moderate to severe diverticulosis in the sigmoid colon.
7. Mild diffuse hepatic steatosis.
8. Small hiatal hernia.
9. Previous CABG surgery, aortic valve replacement, and mitral valve replacement.
10. Severe multilevel lumbar discogenic degenerative disease.
Echo 06/12
Small left ventricular size. Normal wall thickness and systolic function. No
regional wall motion abnormalities are seen. LV ejection fraction is 66% by
Hutchison's biplane method of discs. Diastolic function indeterminate.
Normal right ventricular size and function.
Normal atria.
S/P # 29 Bovine Magna tissue valve with peak/mean gradients across the mitral
valve of 10/3 mmHg respectively.
S/P #23 Bovine Magna tissue valve with peak/mean gradients across the aortic
valve of 10/6 mmHg respectively. No aortic regurgitation is seen.
Trace tricuspid regurgitation. Estimated pulmonary artery pressure of 31 mmHg
assuming a right atrial pressure of 3 mmHg.
When compared to prior study on 10/10/2018, there is no significant change.
Plan
Complicated UTI
Has been lethargic, although with no evidence of systemic infection or sepsis upon presentation
CT scan as above
Bladder scan in ED 271 mL. Had saturated diapers on arrival.
Check PSA, although possibly skewed in the settings of UTI
Initiate Proscar, and Flomax
Depends on further clinical course/retention may require inpatient urology evaluation
Urine cultures pending
Blood cultures pending (drawn after first dose of antibiotics)
Continued ceftriaxone
Continue bowel regimen with MiraLAX
Metabolic encephalopathy in the settings of UTI in patient with advanced dementia
He has a prior history of TIA and CVA as well as a flutter being not on anticoagulation
Check CT scan of the head
Monitor for improvement
Check B12, TSH.
Aspiration precautions
ASCVD with prior history of TIA CVA.
History of carotid enterectomy.
Echo as above
Paroxysmal atrial flutter.
Monitor on telemetry.
Continue metoprolol and Norvasc monitoring for hypotension
Continue atorvastatin and ezetimibe
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
MRI of the brain 06/12 with moderate to severe bilateral temporal lobe volume loss, moderate volume loss in the frontal and parietal lobe consistent with severe neurodegenerative disease probably Alzheimer disease.
CT head pending
Continue sertraline
PT/OT assessment
Discharge planning accordingly
History of ulcerative colitis
Formerly on mesalamine.
Full code
DVT prophylaxis Lovenox
-Discussed with case management for discharge disposition. PT OT jimbo. Potassium supplementation. Discussed with son over the phone (tried but unsuccessful [phone]).
Anticipated Discharge: Within 24 hours
Subjective/Interval History
-
Date of Service: December 27, 2024
Patient with generalized weakness. He was refusing some of his medications but later on he decided to take them. Afebrile
Objective Data
-
Labs:
Laboratory Results
12/27/24
07:34
WBC 6.7
Hgb 13.4
Hct 38.4 L
Plt Count 129 L
Sodium 138
Potassium 3.4 L
Chloride 105
Carbon Dioxide 27
BUN 19
Creatinine 0.8
Glucose 89
Calcium 8.9
Vital Signs:
Vital Signs
Temp Pulse Resp BP Pulse Ox
99.3 F 80 16 145/80 96
12/27/24 07:00 12/27/24 07:00 12/27/24 07:00 12/27/24 07:00 12/27/24 07:00
I&O
12/26/24 12/27/24 12/28/24
06:59 06:59 06:59
Intake Total 0 / 0
Output Total 515 / 515
Balance -515 / -515
[2024-12-27] MEDS: LIPITOR 40 MG PO (09:51)
[2024-12-27] MEDS: FLOMAX PO (09:59)
[2024-12-27] MEDS: PROSCAR 5 MG PO (10:00)
[2024-12-27] MEDS: NORVASC 2.5 MG PO (10:00)
[2024-12-27] MEDS: ZETIA 10 MG PO (10:01)
[2024-12-27] MEDS: LOPRESSOR 12.5 MG PO (10:03)
[2024-12-27] MEDS: ZOLOFT 50 MG PO (10:03)
[2024-12-27 11:00] VITALS: BP 145/88
[2024-12-27] MEDS: KCL 40 MEQ PO (12:14)
[2024-12-27 15:00] VITALS: BP 115/94
[2024-12-27 16:34] VITALS: BP 115/94
[2024-12-27] MEDS: LOVENOX 40 MG SC (17:00)
[2024-12-27] MEDS: STERILE WATER FOR INJECTION 10 ML IV (21:22)
[2024-12-27] MEDS: ROCEPHIN 1000 MG IV (21:22)
[2024-12-27] MEDS: SEROQUEL 25 MG PO (21:23)
[2024-12-27] MEDS: FLUSH (NSS) 1 FLUSH IV (21:24)
[2024-12-27 23:00] VITALS: BP 147/76
[2024-12-28 10:51] VITALS: BP 177/106
[2024-12-28] MEDS: FLOMAX PO (11:04)
[2024-12-28] MEDS: NORVASC PO (11:04)
[2024-12-28] MEDS: LIPITOR PO (11:04)
[2024-12-28] MEDS: LOPRESSOR PO (11:04)
[2024-12-28] MEDS: ZETIA PO (11:05)
[2024-12-28] MEDS: ZOLOFT PO (11:05)
[2024-12-28] MEDS: PROSCAR PO (11:05)
[2024-12-28 12:10] LABS: Hematocrit 43.6 % (39.0-52.0); Hemoglobin 14.7 g/dL (13.0-18.0); Mean Corp Hgb Conc. 33.7 g/dL (33.0-37.0); Mean Corpuscular Volume 91.4 fL (80.0-94.0); Nucleated Red Blood Cells % 0 % (-); Platelet Count 154 10^3/uL (130-400); Red Cell Dist. Width 12.3 % (11.5-14.5)
[2024-12-28 12:16] LABS: Blood Urea Nitrogen 17 mg/dl (9-20); Calcium 9.2 mg/dl (8.4-10.2); Carbon Dioxide 29 mmol/L (22-30); Chloride 102 mmol/L (98-107); Estimated Creatinine Clearance 58 ml/min; Glucose 84 mg/dl (70-99); Potassium 3.6 mmol/L (3.5-5.1); Sodium 136 mmol/L (135-145); eGFR > 60.00
--- NOTE | 2024-12-28 12:50 | W.PN.HOSP.TC ---
Addendum entered and electronically signed by Eugene Mena MD 12/28/24 16:50:
Repeated CT of the head and VBG--> both tests unremarkable indicating this was medication induced as suspected.
Patient reevaluated in afternoon and definitely more alert and started to get out of bed and be more restless. Restraints reordered.
Original Note:
Today's Communication/Plan
-
IV antibiotics. IV antihypertensives. PT OT eval.
Assessment / Plan
Assessment / Plan
Physical exam:
General: Acutely ill
HEENT: Normocephalic, Atraumatic and Moist Mucous Membranes
Respiratory: Clear to Auscultation; Negative Wheezes, Rales or Rhonchi
Cardiac: Regular Rhythm and S1/S2
GI: Soft, Nontender and Nondistended
Musculoskeletal: No Clubbing, No Cyanosis and No Edema
Neuro: Lethargic but able to answer questions and moves all extremities and Disoriented, no neurological deficit
Psych: Agitation on and off when not lethargic
A/P:
Impression
Toxic metabolic encephalopathy secondary to UTI
UTI/cystitis, concern for complicated UTI with bladder outlet obstruction.
Conditions prior to admission
ASCVD with history of TIA/CVA.
Left carotid artery stenosis with history of carotid enterectomy 2013.
Bioprosthetic aortic valve and mitral valve
Paroxysmal atrial flutter not on anticoagulation
Dyslipidemia
History of ulcerative colitis
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
Imaging
CT abdomen/pelvis without contra
IMPRESSION:
1. Mild diffuse urinary bladder wall thickening consistent with acute cystitis superimposed upon chronic urinary bladder outlet obstruction.
2. Severely enlarged prostate gland.
3. Moderate chronic bilateral renal disease.
4. Very severe calcific atherosclerotic plaque in the abdominal aorta, renal arteries, and iliac arteries.
5. Moderate amount of fecal material in the proximal colon.
6. Moderate to severe diverticulosis in the sigmoid colon.
7. Mild diffuse hepatic steatosis.
8. Small hiatal hernia.
9. Previous CABG surgery, aortic valve replacement, and mitral valve replacement.
10. Severe multilevel lumbar discogenic degenerative disease.
Echo 06/12
Small left ventricular size. Normal wall thickness and systolic function. No
regional wall motion abnormalities are seen. LV ejection fraction is 66% by
Hutchison's biplane method of discs. Diastolic function indeterminate.
Normal right ventricular size and function.
Normal atria.
S/P # 29 Bovine Magna tissue valve with peak/mean gradients across the mitral
valve of 10/3 mmHg respectively.
S/P #23 Bovine Magna tissue valve with peak/mean gradients across the aortic
valve of 10/6 mmHg respectively. No aortic regurgitation is seen.
Trace tricuspid regurgitation. Estimated pulmonary artery pressure of 31 mmHg
assuming a right atrial pressure of 3 mmHg.
When compared to prior study on 10/10/2018, there is no significant change.
Plan
Complicated UTI
Has been lethargic, although with no evidence of systemic infection or sepsis upon presentation
CT scan as above
Bladder scan in ED 271 mL. Had saturated diapers on arrival.
Check PSA, although possibly skewed in the settings of UTI
Initiate Proscar, and Flomax
Depends on further clinical course/retention may require inpatient urology evaluation
Urine cultures pending
Blood cultures pending (drawn after first dose of antibiotics)
Continued ceftriaxone
Continue bowel regimen with MiraLAX
Metabolic encephalopathy in the settings of UTI in patient with advanced dementia
He has a prior history of TIA and CVA as well as a flutter being not on anticoagulation
Check CT scan of the head
Monitor for improvement
Check B12, TSH.
Aspiration precautions
ASCVD with prior history of TIA CVA.
History of carotid enterectomy.
Echo as above
Paroxysmal atrial flutter.
Monitor on telemetry.
Continue metoprolol and Norvasc monitoring for hypotension
Continue atorvastatin and ezetimibe
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
MRI of the brain 06/12 with moderate to severe bilateral temporal lobe volume loss, moderate volume loss in the frontal and parietal lobe consistent with severe neurodegenerative disease probably Alzheimer disease.
CT head no acute pathology
Continue sertraline
PT/OT assessment
Discharge planning accordingly
History of ulcerative colitis
Formerly on mesalamine.
Full code
DVT prophylaxis Lovenox
-Discussed with case management for discharge disposition today. PT OT eval. Potassium supplemented. Discussed with son over the phone (tried but unsuccessful [phone]). I was going to switch to oral antibiotics but switched back to IV
since patient not taking oral consistently. Also high blood pressure and not taking his medications. I was going to give him schedule IV Lopressor but not maintaining cardiac monitoring so we will keep him on IV hydralazine as needed. Tried
Seroquel last night for behavioral disturbances but oversedated so discontinue Seroquel.
Anticipated Discharge: 24 - 48 hours
Subjective/Interval History
-
Date of Service: December 28, 2024
Patient lethargic today although able to wake up and answer questions and agitated/restless on and off reported by RN. He got Seroquel last night. Afebrile
Objective Data
-
Labs:
Laboratory Results
12/28/24
11:49
WBC 4.8
Hgb 14.7
Hct 43.6
Plt Count 154
Sodium 136
Potassium 3.6
Chloride 102
Carbon Dioxide 29
BUN 17
Creatinine 0.8
Glucose 84
Calcium 9.2
Vital Signs:
Vital Signs
Temp Pulse Resp BP Pulse Ox
98.1 F 96 17 177/106 96
12/27/24 23:00 12/28/24 10:51 12/27/24 23:00 12/28/24 10:51 12/28/24 10:51
I&O
12/27/24 12/28/24 12/29/24
06:59 06:59 06:59
Intake Total 0 / 0
Output Total 515 / 515
Balance -515 / -515
[2024-12-28 14:22] LABS: Venous Blood Gas B.E. 3.3 mmol/L (-4 to +4); Venous Blood Gas O2 Sat % 99.6 %
[2024-12-28 14:23] LABS: Venous Blood Gas O2 Therapy room air
[2024-12-28 16:08] VITALS: BP 153/87
[2024-12-28] MEDS: LOVENOX 40 MG SC (17:28)
[2024-12-28] MEDS: ROCEPHIN 1000 MG IV (20:42)
[2024-12-28] MEDS: STERILE WATER FOR INJECTION 10 ML IV (20:42)
[2024-12-28 23:00] VITALS: BP 133/67
[2024-12-29 07:30] VITALS: BP 163/90
[2024-12-29] MEDS: NORVASC 2.5 MG PO (11:55)
[2024-12-29] MEDS: PROSCAR 5 MG PO (11:55)
[2024-12-29] MEDS: ZETIA 10 MG PO (11:55)
[2024-12-29] MEDS: FLOMAX 0.4 MG PO (11:55)
[2024-12-29] MEDS: LIPITOR 40 MG PO (11:56)
--- NOTE | 2024-12-29 12:00 | CM ---
Patient seen at bedside on . Patient currently in restraints per patient nurse. Patient recommendation per therapy is for SNF. Patient seen in bed resting. CM will call to patient family to review options for SNF placement. CM will continue to
follow for discharge planning needs.
Plan; SNF; pending acceptance and bed availability. Patient will need auth.
[2024-12-29] MEDS: LOPRESSOR 12.5 MG PO (12:05)
[2024-12-29] MEDS: ZOLOFT 50 MG PO (12:05)
--- NOTE | 2024-12-29 14:09 | W.PN.HOSP.TC ---
Today's Communication/Plan
-
Mental status improved
PT
Monitor oral intake
Continue antibiotics with plan to transition to oral if stable oral intake and MS
Bladder scan
Assessment / Plan
Assessment / Plan
Impression
Toxic metabolic encephalopathy secondary to UTI
UTI/cystitis, concern for complicated UTI with bladder outlet obstruction.
Conditions prior to admission
ASCVD with history of TIA/CVA.
Left carotid artery stenosis with history of carotid enterectomy 2013.
Bioprosthetic aortic valve and mitral valve
Paroxysmal atrial flutter not on anticoagulation
Dyslipidemia
History of ulcerative colitis
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
Imaging
CT abdomen/pelvis without contra
IMPRESSION:
1. Mild diffuse urinary bladder wall thickening consistent with acute cystitis superimposed upon chronic urinary bladder outlet obstruction.
2. Severely enlarged prostate gland.
3. Moderate chronic bilateral renal disease.
4. Very severe calcific atherosclerotic plaque in the abdominal aorta, renal arteries, and iliac arteries.
5. Moderate amount of fecal material in the proximal colon.
6. Moderate to severe diverticulosis in the sigmoid colon.
7. Mild diffuse hepatic steatosis.
8. Small hiatal hernia.
9. Previous CABG surgery, aortic valve replacement, and mitral valve replacement.
10. Severe multilevel lumbar discogenic degenerative disease.
Echo 06/12
Small left ventricular size. Normal wall thickness and systolic function. No
regional wall motion abnormalities are seen. LV ejection fraction is 66% by
Hutchison's biplane method of discs. Diastolic function indeterminate.
Normal right ventricular size and function.
Normal atria.
S/P # 29 Bovine Magna tissue valve with peak/mean gradients across the mitral
valve of 10/3 mmHg respectively.
S/P #23 Bovine Magna tissue valve with peak/mean gradients across the aortic
valve of 10/6 mmHg respectively. No aortic regurgitation is seen.
Trace tricuspid regurgitation. Estimated pulmonary artery pressure of 31 mmHg
assuming a right atrial pressure of 3 mmHg.
When compared to prior study on 10/10/2018, there is no significant change.
Plan
Complicated UTI
Has been lethargic, although with no evidence of systemic infection or sepsis upon presentation
CT scan as above
Bladder scan in ED 271 mL. Had saturated diapers on arrival.
Check PSA, although possibly skewed in the settings of UTI
Initiated Proscar, and Flomax
Depends on further clinical course/retention may require inpatient urology evaluation
Urine cultures with Klebsiella sensitive to ceftriaxone
Blood cultures pending (drawn after first dose of antibiotics)
Continued ceftriaxone
Continue bowel regimen with MiraLAX
Metabolic encephalopathy in the settings of UTI in patient with advanced dementia
He has a prior history of TIA and CVA as well as a flutter being not on anticoagulation
Check CT scan of the head
Monitor for improvement
Check B12, TSH.
Aspiration precautions
ASCVD with prior history of TIA CVA.
History of carotid enterectomy.
Echo as above
Paroxysmal atrial flutter.
Monitor on telemetry.
Continue metoprolol and Norvasc monitoring for hypotension
Continue atorvastatin and ezetimibe
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
MRI of the brain 06/12 with moderate to severe bilateral temporal lobe volume loss, moderate volume loss in the frontal and parietal lobe consistent with severe neurodegenerative disease probably Alzheimer disease.
CT head no acute pathology
Continue sertraline
PT/OT assessment
Discharge planning accordingly
History of ulcerative colitis
Formerly on mesalamine.
Full code
DVT prophylaxis Lovenox
Anticipated Discharge: 24 - 48 hours
Subjective/Interval History
-
Date of Service: December 29, 2024
Objective Data
-
Vital Signs:
Vital Signs
Temp Pulse Resp BP Pulse Ox
97.8 F 83 16 163/90 96
12/29/24 07:30 12/29/24 07:30 12/29/24 07:30 12/29/24 07:30 12/29/24 07:30
Physical Exam
-
General: Well Developed and No Apparent Distress
HEENT: Normocephalic, Atraumatic and Moist Mucous Membranes
Respiratory: Clear to Auscultation
Cardiac: Regular Rhythm and S1/S2; Negative Murmur, Rub or Gallop
GI: Soft, Nontender, Nondistended and Normal Bowel Sounds; Negative Organomegaly
Rectal: Deferred by Provider
Musculoskeletal: No Clubbing, No Cyanosis and No Edema
Skin: Negative Rash
Neuro: Nonfocal/Grossly Intact
[2024-12-29 16:00] VITALS: BP 157/84
[2024-12-29] MEDS: LOVENOX 40 MG SC (17:02)
[2024-12-29] MEDS: ROCEPHIN 1000 MG IV (19:52)
[2024-12-29] MEDS: STERILE WATER FOR INJECTION 10 ML IV (19:53)
[2024-12-29 23:00] VITALS: BP 120/68
[2024-12-30 07:30] VITALS: BP 148/70
[2024-12-30] MEDS: ZETIA 10 MG PO (09:24)
[2024-12-30] MEDS: LIPITOR 40 MG PO (09:24)
[2024-12-30] MEDS: NORVASC 2.5 MG PO (09:25)
[2024-12-30] MEDS: PROSCAR 5 MG PO (09:25)
[2024-12-30] MEDS: LOPRESSOR 12.5 MG PO (09:25)
[2024-12-30] MEDS: ZOLOFT 50 MG PO (09:25)
[2024-12-30] MEDS: FLOMAX 0.4 MG PO (09:26)
[2024-12-30 12:09] VITALS: BP 103/98
--- NOTE | 2024-12-30 13:58 | W.PN.HOSP.TC ---
Today's Communication/Plan
-
PT assessment
Mental status close to baseline and patient has been off restraints
Discharge planning likely SNF placement
Continue IV antibiotics to complete total of 5-day course of therapy
Monitor for retention
Continue Flomax and Proscar
Assessment / Plan
Assessment / Plan
Impression
Toxic metabolic encephalopathy secondary to UTI
UTI/cystitis, concern for complicated UTI with bladder outlet obstruction.
Conditions prior to admission
ASCVD with history of TIA/CVA.
Left carotid artery stenosis with history of carotid enterectomy 2013.
Bioprosthetic aortic valve and mitral valve
Paroxysmal atrial flutter not on anticoagulation
Dyslipidemia
History of ulcerative colitis
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
Imaging
CT abdomen/pelvis without contra
IMPRESSION:
1. Mild diffuse urinary bladder wall thickening consistent with acute cystitis superimposed upon chronic urinary bladder outlet obstruction.
2. Severely enlarged prostate gland.
3. Moderate chronic bilateral renal disease.
4. Very severe calcific atherosclerotic plaque in the abdominal aorta, renal arteries, and iliac arteries.
5. Moderate amount of fecal material in the proximal colon.
6. Moderate to severe diverticulosis in the sigmoid colon.
7. Mild diffuse hepatic steatosis.
8. Small hiatal hernia.
9. Previous CABG surgery, aortic valve replacement, and mitral valve replacement.
10. Severe multilevel lumbar discogenic degenerative disease.
Echo 06/12
Small left ventricular size. Normal wall thickness and systolic function. No
regional wall motion abnormalities are seen. LV ejection fraction is 66% by
Hutchison's biplane method of discs. Diastolic function indeterminate.
Normal right ventricular size and function.
Normal atria.
S/P # 29 Bovine Magna tissue valve with peak/mean gradients across the mitral
valve of 10/3 mmHg respectively.
S/P #23 Bovine Magna tissue valve with peak/mean gradients across the aortic
valve of 10/6 mmHg respectively. No aortic regurgitation is seen.
Trace tricuspid regurgitation. Estimated pulmonary artery pressure of 31 mmHg
assuming a right atrial pressure of 3 mmHg.
When compared to prior study on 10/10/2018, there is no significant change.
Plan
Complicated UTI
Has been lethargic, although with no evidence of systemic infection or sepsis upon presentation
CT scan as above
Bladder scan in ED 271 mL. Had saturated diapers on arrival.
Check PSA, although possibly skewed in the settings of UTI
Initiated Proscar, and Flomax
Depends on further clinical course/retention may require inpatient urology evaluation
Urine cultures with Klebsiella sensitive to ceftriaxone
Blood cultures negative (drawn after first dose of antibiotics)
Continued ceftriaxone
Continue bowel regimen with MiraLAX
Metabolic encephalopathy in the settings of UTI in patient with advanced dementia
He has a prior history of TIA and CVA as well as a flutter being not on anticoagulation
Check CT scan of the head
Monitor for improvement
Check B12, TSH.
Aspiration precautions
ASCVD with prior history of TIA CVA.
History of carotid enterectomy.
Echo as above
Paroxysmal atrial flutter.
Monitor on telemetry.
Continue metoprolol and Norvasc monitoring for hypotension
Continue atorvastatin and ezetimibe
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
MRI of the brain 06/12 with moderate to severe bilateral temporal lobe volume loss, moderate volume loss in the frontal and parietal lobe consistent with severe neurodegenerative disease probably Alzheimer disease.
CT head no acute pathology
Continue sertraline
PT/OT assessment
Discharge planning accordingly
History of ulcerative colitis
Formerly on mesalamine.
Full code
DVT prophylaxis Lovenox
Anticipated Discharge: 24 - 48 hours
Subjective/Interval History
-
Date of Service: December 30, 2024
Objective Data
-
Vital Signs:
Vital Signs
Temp Pulse Resp BP Pulse Ox
97.9 F 77 16 148/70 99
12/30/24 07:30 12/30/24 07:30 12/30/24 07:30 12/30/24 07:30 12/30/24 07:30
I&O
12/29/24 12/30/24 12/31/24
06:59 06:59 06:59
Intake Total 600 / 600
Balance 600 / 600
Physical Exam
-
General: Well Developed and No Apparent Distress
HEENT: Normocephalic, Atraumatic and Moist Mucous Membranes
Respiratory: Clear to Auscultation
Cardiac: Regular Rhythm and S1/S2; Negative Murmur, Rub or Gallop
GI: Soft, Nontender, Nondistended and Normal Bowel Sounds; Negative Organomegaly
Rectal: Deferred by Provider
Musculoskeletal: No Clubbing, No Cyanosis and No Edema
Skin: Negative Rash
Neuro: Nonfocal/Grossly Intact
[2024-12-30 16:00] VITALS: BP 93/61
--- NOTE | 2024-12-30 16:24 | CM ---
Reviewed PT eval with .
refused SNF. She is requested to take home with Palliative care and VN . [facility] liaison notified.
Coleen aid she has [facility] care givers set up for 2x weekly but will increase time.
Pt not in restraints.IMM reviewed with . IMM signed on chart.
said her son will help transport him home.
PLAN Home with VN
--- NOTE | 2024-12-30 16:36 | VNURNOTE ---
Home Health Liaison met with patient, spouse, daughter at bedside to discuss [facility] nurse/therapy, visits, schedule and homebound status. Spouse is agreeable and understands that visits at home will be 2-3 x per week to assess and teach medical
management. She is familiar with [facility]. Spouse is aware that [facility] will contact them for start of care within a week after discharge from . Provided contact number for [facility].
[facility] referral completed in [facility].
[2024-12-30] MEDS: LOVENOX 40 MG SC (17:57)
[2024-12-30 19:10] VITALS: BP 122/69
[2024-12-30] MEDS: TYLENOL 650 MG PO (20:00)
[2024-12-30] MEDS: ROCEPHIN 1000 MG IV (20:01)
[2024-12-30] MEDS: MELATONIN 5 MG PO (20:01)
[2024-12-30] MEDS: STERILE WATER FOR INJECTION 10 ML IV (20:02)
[2024-12-30 23:00] VITALS: BP 151/72
[2024-12-31 03:00] VITALS: BP 151/72
[2024-12-31 08:27] VITALS: BP 147/81
[2024-12-31] MEDS: ZETIA 10 MG PO (08:31)
[2024-12-31] MEDS: NORVASC 2.5 MG PO (08:31)
[2024-12-31] MEDS: ZOLOFT 50 MG PO (08:31)
[2024-12-31] MEDS: LIPITOR 40 MG PO (08:31)
[2024-12-31] MEDS: FLOMAX 0.4 MG PO (08:31)
[2024-12-31] MEDS: LOPRESSOR 12.5 MG PO (08:31)
[2024-12-31] MEDS: PROSCAR 5 MG PO (08:32)
[2024-12-31 08:35] LABS: Hematocrit 43.3 % (39.0-52.0); Hemoglobin 14.2 g/dL (13.0-18.0); Mean Corp Hgb Conc. 32.8 g/dL (33.0-37.0); Mean Corpuscular Volume 94.3 fL (80.0-94.0); Nucleated Red Blood Cells % 0 % (-); Platelet Count 165 10^3/uL (130-400); Red Cell Dist. Width 12.1 % (11.5-14.5)
--- NOTE | 2024-12-31 09:53 | CM ---
refused SNF. She is requested to take home with Palliative care and VN . [facility] liaison set up VN
Coleen aid she has [facility] set up for 2x weekly but will increase time.
IMM signed on chart.
said her son will help transport him home.
PLAN Home with VN
--- NOTE | 2024-12-31 11:21 | W.DS.TRANS ---
DC Summary - It Audit Manager
-
Discharge Instructions:
Discharge Diagnosis/Procedures Impression
Toxic metabolic encephalopathy secondary to UTI
UTI/cystitis, concern for complicated UTI with
bladder outlet obstruction.
Conditions prior to admission
ASCVD with history of TIA/CVA.
Left carotid artery stenosis with history of
carotid enterectomy 2013.
Bioprosthetic aortic valve and mitral valve
Paroxysmal atrial flutter not on anticoagulation
Dyslipidemia
History of ulcerative colitis
Dementia possibly Alzheimer's versus vascular
type
Diet Regular
Instructions:
Stand-Alone Forms:
Changes to Home Medications: Yes
Discharge Medications:
DC Medications w/original date entered in [email or web address]
atorvastatin 40 mg tablet 40 mg PO DAILY High Cholesterol 07/01/15
ezetimibe 10 mg tablet 10 mg PO DAILY High Cholesterol 09/17/23
polyethylene glycol 3350 17 gram oral powder packet ([employer]yLax) 17 g PO DAILYPRN PRN constipation #0 ea 09/18/23
metoprolol tartrate 25 mg tablet 12.5 mg PO DAILY Blood pressure 12/25/24
sertraline 50 mg tablet 50 mg PO DAILY depression/anxiety 12/25/24
therapeutic multivitamin 1 tab PO DAILY Supplement 12/25/24
amlodipine 2.5 mg tablet (Norvasc) 2.5 mg PO DAILY Blood Pressure 12/26/24
finasteride 5 mg tablet 5 mg PO DAILY #30 tabs 12/31/24
tamsulosin 0.4 mg capsule 0.4 mg PO DAILY #30 caps 12/31/24
Home Medication Changes
Flomax and Proscar started
Pending Results: No
[2024-12-31] MEDS: LEVAQUIN 500 MG PO (12:16)
== END 2024-12-31 14:31 | disposition home health service (06) | DRG 689 ==
LOC: 3 WEST ACU 08:41
PROVIDERS: Hospitalist; Nurse Practitioner Family; Physician Assistant; ADMITTING PHYSICIAN Internal Medicine; ATTENDING PHYSICIAN Internal Medicine; EMERGENCY PHYSICIAN Emergency Medicine; FAMILY PHYSICIAN Family Medicine
DX: N39.0 Urinary tract infection, site not specified (principal); G92.8 Other toxic encephalopathy; I48.92 Unspecified atrial flutter; Z11.52 Encounter for screening for COVID-19; I10 Essential (primary) hypertension; E78.00 Pure hypercholesterolemia, unspecified; G30.9 Alzheimer's disease, unspecified; Z86.73 Personal history of transient ischemic attack (TIA), and cerebral infarction without residual deficits; I48.0 Paroxysmal atrial fibrillation; I65.22 Occlusion and stenosis of left carotid artery
CPT/HCPCS: 51701; 70450; 71045; 74176; 80048; 80053; 81003; 81015; 82607; 82805; 83880; 84443; 85025; 85027; 87040; 87077; 87086; 87186; 87502; 87811; 92610; 93005; 96361; 96374; 97110; 97116; 99285; G0103